=== PATIENT | male | born 1960 | race Caucasian/White ===

== ENCOUNTER → 2016-03-31 | Outpatient (CLI) | payer SELFPAY ==
[~2016-03-31] MED LIST: ALPR.25T PO; AMX500CIP PO; ATOR10TA PO; Amlodipine Besylate PO; CEFU500T5 PO; CRB200T PO; Levothyroxine Sodium PO; OLAN7.5T3 PO; OLN5T PO; PANT20TA2 PO
--- OUTSIDE RECORDS SUMMARY | 2016-03-31 08:19 | XMS REPORT | Continuity of Care Document ---
Author Author [facility] Organization [facility] Address Unknown Phone Unavailable Care Team Providers Care Poacher Wringer Operator Name Role Phone TAE GODOY DO PCP Insurance Providers Payer Name Policy Number Subscriber Name Relationship Self Pay Feliberto Land 18 Self / Same As Patient Advance Directives Directive Response Recorded Date/Time Advance Directives No 01/17/14 2:54pm Health Care Power of Manufacturing Engineer Chief No 01/17/14 2:54pm Organ Donor No 01/17/14 2:54pm Resuscitation Status Full Code 01/17/14 2:54pm Chief Complaint and Reason for Visit Chief Complaint S/P SEIZURE Reason for Visit Post-ictal state Post-ictal state Problems Medical Problems Problem Onset Date Status Post-ictal state Unknown Active Post-ictal state Unknown Active Medications Medication Dose Route Sig Days/Qty Instructions Order Date Discontinued Date Status Carbamazepine 200 Mg PO TWICE A DAY 08/05/10 Active Olanzapine 3.5 Mg PO BEDTIME 11/28/11 11/29/11 Discontinued Olanzapine 5 Mg PO BEDTIME 11/29/11 01/17/14 Discontinued Cefuroxime Axetil (Ceftin) 500 Mg PO TWICE A DAY 12/01/11 01/17/14 Discontinued Alprazolam 0.25 Mg PO BEDTIME PRN ANXIETY 12/01/11 Active [Amlodipine Besylate] 5 Mg PO DAILY 30 Qty 01/18/14 Active [Levothyroxine Sodium] 25 Mcg PO DAILY@0630 30 Qty 01/18/14 Active Amoxicillin 500 Mg PO THREE TIMES A DAY 20 Qty 01/18/14 Active Social History Social History Problem Response Recorded Date/Time Alcohol Use Denies Use 01/17/2014 2:50pm Recreational Drug Use Yes 01/17/2014 2:50pm Recent Foreign Travel No 01/17/2014 2:50pm Recent Infectious Disease Exposure No 01/17/2014 2:50pm Hospitalization with Isolation Denies 01/18/2014 3:21pm Smoking Status Current Everyday Smoker 01/17/2014 2:44pm Do you dip or chew tobacco? No 01/17/2014 2:44pm Query Response Start Date Stop Date Smoking Status Current Everyday Smoker Hospital Discharge Instructions Patient Instructions Physician Instructions New, Converted or Re-Newed RX: Call to Patients Pharmacy Plan of Care/Instructions/FU: 2 office in one week. Seizure precautions. No driving. No heights Activity as Tolerated: Yes Discharge Diet: No Restrictions Plan of Care Discharge Date 01/18/14 2:45pm Disposition 01 HOME, SELF-CARE Instructions/Education Provided Non-epileptic Seizures (GEN) Prescriptions See Medications Section Referrals DR. GODOY (Unspecified) Functional Status Query Response Date Recorded Patient Orientation Person Place Time Situation January 18, 2014 3:21pm Comprehension Ability Understands Concepts January 18, 2014 12:00pm Allergies, Adverse Reactions, Alerts Allergen Type Severity Reaction Status Last Updated No Known Drug Allergies Active 08/05/10 Immunizations Name Given Type Date of Pneumonia Vaccine 11/29/11 Historical Vital Signs Acute Vital Signs Vital Response Date/Time Temperature (Fahrenheit) 97.5 degrees F (97.6 - 99.5) Temperature (Calculated Celsius) 36.28394 degrees C (36.4 - 37.5) Temperature Source Tympanic Pulse Rate (adult) 56 bpm (60 - 90) Respiratory Rate 20 bpm (12 - 24) O2 Sat by Pulse Oximetry 99 % (88 - 100) Blood Pressure 151/74 mm Hg Pain Pain Intensity 10 Height (Feet) 5 feet Height (Inches) 11.00 inches Height (Calculated Centimeters) 180.794721 cm Weight (Pounds) 178 pounds Weight (Ounces) 4.0 oz Weight (Calculated Grams) 53962.841 gm Weight (Calculated Kilograms) 80.736831 kilograms Calculated BMI 24.82 Results Test Source Date Result Interp. Ref. Range Comments Acetaminophen Level August 05, 2010 2:23pm < 10 UG/ML L 10.0-30.0 Acetaminophen Screen August 05, 2010 4:25pm NEGATIVE - APAP= ACETAMINOPHEN/PARACETAMOL Activated Partial Thromboplast Time November 28, 2011 8:05pm 40 SEC H 24-35 Alanine Aminotransferase (ALT/SGPT) November 29, 2011 7:54am 34 U/L N 30-65 Albumin November 29, 2011 7:54am 2.7 G/DL L 3.4-5.0 Alkaline Phosphatase November 29, 2011 7:54am 74 U/L N 50-136 Aspartate Amino Transf (AST/SGOT) November 29, 2011 7:54am 19 U/L N 15- 37 BUN/Creatinine Ratio December 01, 2011 5:27am 13 - Band Neutrophils November 29, 2011 7:54am 28 % - Basophils # (Auto) December 01, 2011 5:27am 0.0 10^3/uL N 0.0-0.1 Basophils % (Manual) November 29, 2011 7:54am 0 % - Basophils (%) (Auto) December 01, 2011 5:27am 0 % N 0-10 Blood Urea Nitrogen December 01, 2011 5:27am 13 MG/DL N 7-18 Calcium Level December 01, 2011 5:27am 8.1 MG/DL L 8.5-10.1 Carbamazepine (Tegretol) Level December 01, 2011 5:27am 8.5 UG/ML N 4.0 -12.0 Carbon Dioxide Level December 01, 2011 5:27am 31 MMOL/L N 21-32 Chloride Level December 01, 2011 5:27am 106 MMOL/L N 101-110 Cholesterol Level August 19, 2011 12:00pm 204 MG/DL H -200 Creatinine December 01, 2011 5:27am 1.0 MG/DL N 0.6-1.3 Eosinophils # (Auto) December 01, 2011 5:27am 0.0 10^3/uL N 0.0-0.3 Eosinophils % (Manual) November 29, 2011 7:54am 0 % - Eosinophils (%) (Auto) December 01, 2011 5:27am 0 % N 0-10 Glucose Level December 01, 2011 5:27am 85 MG/DL N 74-106 HDL Cholesterol August 19, 2011 12:00pm 40 MG/DL N 35-60 Hematocrit December 01, 2011 5:27am 35 % L 40-54 Hemoglobin December 01, 2011 5:27am 12.6 G/DL L 13.3-17.7 LDL Cholesterol August 19, 2011 12:00pm 146 MG/DL H 0-129 Lymphocytes # (Auto) December 01, 2011 5:27am 2.1 X 10^3 N 1.0-4.0 Lymphocytes % (Manual) November 29, 2011 7:54am 13 % - Lymphocytes (%) (Auto) December 01, 2011 5:27am 46 % H 12-44 Magnesium Level November 28, 2011 8:05pm 2.0 MG/DL N 1.8-2.4 Mean Corpuscular Hemoglobin December 01, 2011 5:27am 36 PG H 25-34 Mean Corpuscular Hemoglobin Concent December 01, 2011 5:27am 36 G/DL N 32-36 Mean Corpuscular Volume December 01, 2011 5:27am 100 FL H 80-99 Mean Platelet Volume December 01, 2011 5:27am 9.8 FL N 7.4-10.4 Metamyelocytes % November 29, 2011 7:54am 1 % - Monocytes # (Auto) December 01, 2011 5:27am 0.2 X 10^3 N 0.0-1.0 Monocytes % (Manual) November 29, 2011 7:54am 1 % - Monocytes (%) (Auto) December 01, 2011 5:27am 5 % N 0-12 Myoglobin November 28, 2011 8:05pm 55 UG/L N 10-92 Neutrophils # (Auto) December 01, 2011 5:27am 2.2 X 10^3 N 1.8-7.8 Neutrophils % (Manual) November 29, 2011 7:54am 55 % - Neutrophils (%) (Auto) December 01, 2011 5:27am 49 % N 42-75 Platelet Count December 01, 2011 5:27am 142 10^3/uL N 130-400 Potassium Level December 01, 2011 5:27am 3.4 MMOL/L L 3.6-5.0 Prothromb Time International Ratio November 28, 2011 8:05pm 1.2 N 0.8- 1.4 INTERPRETIVE DATASUGGESTED THERAPEUTIC RANGE FOR INR'S : VENOUS THROMBOSIS, PULMONARY EMBOLISM, OR PREVENTION OF SYSTEMIC EMBOLISM (EG. IN ATRIAL FIBRILLATION): 2.0 - 3.0 MECHANICAL PROSTHETIC HEART VALVES: 2.5 - 3.5* *NOTE: INR'S UP TO 4.5 MAY BE NECESSARY IN SELECTED GROUPS OF HIGH RISK PATIENTS. [employer] [place] [employer] CHEST PHYSICIANS CONSENSUS CONFERENCE ON ANTITHROMBOTIC THERAPY (2000). Prothrombin Time November 28, 2011 8:05pm 15.7 SEC H 12.2-14.7 Reactive Lymphocytes November 29, 2011 7:54am 2 % - Red Blood Count December 01, 2011 5:27am 3.52 10^6/uL L 4.35-5.85 Red Cell Distribution Width December 01, 2011 5:27am 13.7 % N 10.0- 14.5 Sodium Level December 01, 2011 5:27am 142 MMOL/L N 135-145 TSH [place] Testing November 28, 2011 8:05pm 0.59 UIU/ML N 0.34-5.60 Thyroid Stimulating Hormone (TSH) December 12, 2006 9:10am 1.65 UIU/ML N 0.34-5.60 Total Bilirubin November 29, 2011 7:54am 0.4 MG/DL N 0.0-1.0 Total Protein November 29, 2011 7:54am 6.8 G/DL N 6.4-8.2 Triglycerides Level August 19, 2011 12:00pm 90 MG/DL N 30.0-150.0 Troponin I November 29, 2011 7:54am < 0.10 MG/ML 0.00-0.10 Ur Tricyclic Antidepressants Screen August 05, 2010 4:25pm NEGATIVE - Urine Amphetamines Screen August 05, 2010 4:25pm NEGATIVE - Urine Bacteria December 12, 2006 10:58am Trace - Urine Barbiturates Screen August 05, 2010 4:25pm NEGATIVE - Urine Benzodiazepines Screen August 05, 2010 4:25pm NEGATIVE - Urine Bilirubin December 12, 2006 10:58am Negative - Urine Casts December 12, 2006 10:58am None - Urine Clarity December 12, 2006 10:58am Slightly cloudy - Urine Cocaine Screen August 05, 2010 4:25pm NEGATIVE - Urine Color December 12, 2006 10:58am Yellow - Urine Crystals December 12, 2006 10:58am None - Urine Culture Indicated December 12, 2006 10:58am No - Urine Glucose (UA) December 12, 2006 10:58am Negative - Urine Ketones December 12, 2006 10:58am Negative - Urine Leukocyte Esterase December 12, 2006 10:58am Negative - Urine Methamphetamines Screen August 05, 2010 4:25pm NEGATIVE - Urine Mucus December 12, 2006 10:58am Negative - Urine Nitrate December 12, 2006 10:58am Negative - Urine Opiates Screen August 05, 2010 4:25pm NEGATIVE - Urine Phencyclidine Screen August 05, 2010 4:25pm NEGATIVE - Phencyclidine testing by this method can showcross-reactivity with several common medications such as venlafaxine, dextromethorphan, and diphenhydramine. Submission of any positive sample for confirmatory testing is recommended. Urine Protein December 12, 2006 10:58am Negative - Urine RBC December 12, 2006 10:58am None /HPF - Urine Specific [place] December 12, 2006 10:58am 1.020 - Urine Urobilinogen December 12, 2006 10:58am Normal MG/DL - Urine WBC December 12, 2006 10:58am None /HPF - Urine pH December 12, 2006 10:58am 5.0 - VLDL Cholesterol August 19, 2011 12:00pm 18 MG/DL N 5-40 White Blood Count December 01, 2011 5:27am 4.6 10^3/uL N 4.3-11.0 Serum Alcohol August 05, 2010 2:23pm < 5 MG/DL -5 Lab Scanned Report November 28, 2011 9:30pm LAB Reports [id number] - Estimat Glomerular Filtration Rate November 28, 2011 8:05pm > 60 - GFR INTERPRETIVE DATA UNITS FOR ESTIMATED GFR (eGFR): mL/min/1.73 M2 REFERENCE RANGE FOR ESTIMATED GFR (eGFR) eGFR NORMAL eGFR >60 MODERATELY DECREASED eGFR 30-59 SEVERLY DECREASED eGFR 15-29 KIDNEY FAILURE <15 (OR DIALYSIS) Blood Morphology Comment November 29, 2011 7:54am NORMAL - Urine Methadone Screen August 05, 2010 4:25pm NEGATIVE - Creatine Kinase November 29, 2011 7:54am 91 U/L N 1-205 Urine Cannabinoids Screen August 05, 2010 4:25pm POSITIVE H - Cardiac Panel Pathologist Review November 28, 2011 8:05pm SEE CARDIAC PATH REV - Blood Culture Peripheral-Rt Ac November 28, 2011 10:00pm No growth Procedures No known history of procedures. Encounters Encounter Location Date/Time Discharged Inpatient [facility] 01/17/14 2:00pm Recent Diagnosis Post-ictal state Post-ictal state
[2016-03-31 08:34] LABS: MEAN PLATELET VOLUME 8.9 FL (7.4-10.4); RED BLOOD COUNT 4.72 10^6/uL (4.35-5.85); RED CELL DISTRIBUTION WIDTH 12.7 % (10.0-14.5); WHITE BLOOD COUNT 5.7 10^3/uL (4.3-11.0)
[2016-03-31 08:58] LABS: ALANINE AMINOTRANSFERASE 20 U/L (0-55); ALBUMIN 4.2 G/DL (3.2-4.5); ANION GAP 9 MMOL/L (5-14); ASPARTATE AMINO TRANSFERASE 19 U/L (5-34); BILIRUBIN,TOTAL 0.5 MG/DL (0.1-1.0); BLOOD UREA NITROGEN 6 MG/DL (7-18); BUN/CREATININE RATIO 7; CALCIUM 9.1 MG/DL (8.5-10.1); CARBON DIOXIDE 26 MMOL/L (21-32); CHLORIDE 99 MMOL/L (98-107); GFR ESTIMATED > 60; GLUCOSE 83 MG/DL (70-105); POTASSIUM 4.5 MMOL/L (3.6-5.0); SODIUM 134 MMOL/L (135-145); TOTAL PROTEIN 7.3 G/DL (6.4-8.2)
== END ==
LOC: LAB 08:15
PROVIDERS: ATTEND Family Medicine
DX: G40.909 Epilepsy, unspecified, not intractable, without status epilepticus (principal); I10 Essential (primary) hypertension; E03.9 Hypothyroidism, unspecified
CPT/HCPCS: 36415; 80053; 84443; 85027

== ENCOUNTER 2016-05-05 13:49 | Emergency (ER) | payer SELFPAY ==
[~2016-05-05] VITALS: Ht 180.3 cm; Wt 84.8 kg
--- OUTSIDE RECORDS SUMMARY | 2016-05-05 13:58 | XMS REPORT | Continuity of Care Document ---
Author Author [facility] Organization [facility] Address Unknown Phone Unavailable Care Team Providers Care Budget Engineer Name Role Phone TAE GODOY DO PCP Insurance Providers Payer Name Policy Number Subscriber Name Relationship Self Pay Feliberto Land 18 Self / Same As Patient Advance Directives Directive Response Recorded Date/Time Advance Directives No 01/17/14 2:54pm Health Care Power of Senior Financial Reporting Accountant No 01/17/14 2:54pm Organ Donor No 01/17/14 [...] F (97.6 - 99.5) Temperature (Calculated Celsius) 36.63167 degrees C (36.4 - 37.5) Temperature Source Tympanic Pulse Rate (adult) 56 bpm (60 - 90) Respiratory Rate 20 bpm (12 - 24) O2 Sat by Pulse Oximetry 99 % (88 - 100) Blood Pressure 151/74 mm Hg Pain Pain Intensity 10 Height (Feet) 5 feet Height (Inches) 11.00 inches Height (Calculated Centimeters) 180.610725 cm Weight (Pounds) 178 pounds Weight (Ounces) 4.0 oz Weight (Calculated Grams) 37879.841 gm Weight (Calculated Kilograms) 80.377584 kilograms Calculated BMI 24.82 Results Test Source [...] SELECTED GROUPS OF HIGH RISK PATIENTS. [employer] [place] [place] [employer]ST PHYSICIANS CONSENSUS CONFERENCE ON [...] 2011 5:27am 142 MMOL/L N 135-145 TSH [place] Testing November 28, 2011 8:05pm 0.59 UIU/ML [...] 2006 10:58am None /HPF - Urine Specific [place] December 12, 2006 10:58am 1.020 - Urine [...] Report November 28, 2011 9:30pm LAB Reports [id number] - Estimat Glomerular Filtration Rate November 28, [...] Encounters Encounter Location Date/Time Discharged Inpatient [facility] 01/17/14 2:00pm Recent Diagnosis Post-ictal state Post-ictal state
--- NOTE | 2016-05-05 14:03 | ED General ---
General Chief Complaint: General Problems/Pain Stated Complaint: SEIZURES Source of Information: Patient Exam Limitations: No Limitations History of Present Illness Time Seen by Provider: 14:02 Initial Comments To ER with reports of a seizure 2 today. His last seizure prior to this was about a year ago. He is on Tegretol for a history of seizures. He also takes Xanax. He states that his last dose of Xanax was 2-3 days ago and that he takes it daily. disagrees and states that he does not take it daily. Timing/Duration: 1-3 Hours Severity: Mild Associated Systoms: Denies Symptoms Allergies and Home Medications Allergies Coded Allergies: No Known Drug Allergies (Unverified , 08/05/10) Home Medications 5 MG TAB #30 5 MG PO DAILY Prescribed by: TAE GODOY on 01/18/14 0742 25 MCG TAB #30 25 MCG PO DAILY@0630 Prescribed by: TAE GODOY on 01/18/14 0742 Alprazolam 0.25 Mg Tablet 0.25 MG PO HS PRN PRN ANXIETY (Reported) Atorvastatin Calcium 10 Mg Tablet 10 MG PO HS (Reported) Carbamazepine 200 Mg Tablet 200 MG PO BID (Reported) Pantoprazole Sodium 20 Mg Tablet.dr #30 20 MG PO DAILY Prescribed by: KATIE SCHMITZ on 01/14/15 0959 Constitutional: see HPI EENTM: see HPI Respiratory: no symptoms reported Cardiovascular: no symptoms reported Genitourinary: no symptoms reported Musculoskeletal: no symptoms reported Skin: no symptoms reported Psychiatric/Neurological: See HPI Seizure Past Noxwjbd-Vajruc-Afvvbd Hx Immunizations Up To Date Date of Pneumonia Vaccine: Nov 29, 2011 Surgeries HX Surgeries: Yes (BILATERAL CARPAL TUNNEL, LIVER BIOPSY) Respiratory Hx Respiratory Disorders: No Respiratory Disorders: Pneumonia Cardiovascular Hx Cardiac Disorders: Yes Cardiac Disorders: High Cholesterol, Hypertension Neurological Hx Neurological Disorders: Yes (LAST SEIZURE WAS FALL OR WINTER OF 2013) Neurological Disorders: Seizure Disorder Reproductive System Hx Reproductive Disorders: No Sexually Transmitted Disease: No HIV/AIDS: No Genitourinary Hx Genitourinary Disorders: No Gastrointestinal Hx Gastrointestinal Disorders: Yes (TOOK CHEMO FOR 9 MONTHS - HEP C) Gastrointestinal Disorders: Hepatitis Musculoskeletal Hx Musculoskeletal Disorders: Yes Musculoskeletal Disorders: Arthritis, Chronic Back Pain Endocrine Hx Endocrine Disorders: Yes (LOW BLOOD SUGAR) Endocrine Disorders: Hypothyroidsim HEENT HX ENT Disorders: Yes (WEARS GLASSES, UPPER DENTURES) HEENT Disorders: Tinnitis Loss of Vision: Bilateral Hearing Impairment: Denies Cancer Hx Cancer: No Psychosocial Hx 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 Physical Exam Vital Signs Vital Sign - Last 12Hours 05/05/16 14:02 Temp 96.4 Pulse 98 Resp 14 B/P 109/72 Pulse Ox 97 O2 Delivery Room Air Capillary Refill : General Appearance: No Apparent Distress WD/WN Eyes: Bilateral Eye EOMI, Bilateral Eye Normal Inspection, Bilateral Eye PERRL HEENT: PERRL/EOMI TMs Normal Neck: Full Range of Motion Normal Inspection Respiratory: No Accessory Muscle Use No Respiratory Distress Cardiovascular: Regular Rate, Rhythm Normal Peripheral Pulses Gastrointestinal: Normal Bowel Sounds Non Tender Soft Extremity: Normal Capillary Refill Normal Inspection Neurologic/Psychiatric: Alert Oriented x3 Skin: Normal Color Damp Progress/Results/Core Measures Results/Orders Lab Results Laboratory Tests Test 05/05/16 14:15 05/05/16 16:14 Range/Units Acetaminophen Level < 10 L 10-30 UG/ML Alanine Aminotransferase (ALT/SGPT) 57 H 0-55 U/L Albumin 4.1 3.2-4.5 G/DL Alkaline Phosphatase 100 40-136 U/L Anion Gap 11 5-14 MMOL/L Aspartate Amino Transf (AST/SGOT) 46 H 5-34 U/L BUN/Creatinine Ratio 9 Basophils # (Auto) 0.0 0.0-0.1 10^3/uL Basophils (%) (Auto) 0 0-10 % Blood Urea Nitrogen 10 7-18 MG/DL Calcium Level 9.1 8.5-10.1 MG/DL Carbon Dioxide Level 22 21-32 MMOL/L Chloride Level 98 98-107 MMOL/L Creatinine 1.08 0.60-1.30 MG/DL Eosinophils # (Auto) 0.0 0.0-0.3 10^3/uL Eosinophils (%) (Auto) 0 0-10 % Estimat Glomerular Filtration Rate > 60 Glucose Level 130 H 70-105 MG/DL Hematocrit 45 40-54 % Hemoglobin 16.4 13.3-17.7 G/DL Lymphocytes # (Auto) 1.6 1.0-4.0 X 10^3 Lymphocytes (%) (Auto) 22 12-44 % Mean Corpuscular Hemoglobin 34 25-34 PG Mean Corpuscular Hemoglobin Concent 37 H 32-36 G/DL Mean Corpuscular Volume 93 80-99 FL Mean Platelet Volume 8.8 7.4-10.4 FL Monocytes # (Auto) 0.4 0.0-1.0 X 10^3 Monocytes (%) (Auto) 6 0-12 % Neutrophils # (Auto) 5.0 1.8-7.8 X 10^3 Neutrophils (%) (Auto) 71 42-75 % Platelet Count 244 130-400 10^3/uL Potassium Level 3.8 3.6-5.0 MMOL/L Red Blood Count 4.82 4.35-5.85 10^6/uL Red Cell Distribution Width 13.2 10.0-14.5 % Salicylates Level < 5.0 L 5.0-20.0 MG/DL Serum Alcohol < 10 <10 MG/DL Sodium Level 131 L 135-145 MMOL/L Total Bilirubin 0.4 0.1-1.0 MG/DL Total Protein 7.7 6.4-8.2 G/DL White Blood Count 7.0 4.3-11.0 10^3/uL Ur Tricyclic Antidepressants Screen NEGATIVE NEGATIVE Urine Amphetamines Screen NEGATIVE NEGATIVE Urine Bacteria NONE /HPF Urine Barbiturates Screen NEGATIVE NEGATIVE Urine Benzodiazepines Screen POSITIVE H NEGATIVE Urine Bilirubin NEGATIVE NEGATIVE Urine Cannabinoids Screen NEGATIVE NEGATIVE Urine Casts NONE /LPF Urine Clarity CLEAR Urine Cocaine Screen NEGATIVE NEGATIVE Urine Color YELLOW Urine Crystals NONE /LPF Urine Culture Indicated NO Urine Glucose (UA) NEGATIVE NEGATIVE Urine Ketones NEGATIVE NEGATIVE Urine Leukocyte Esterase NEGATIVE NEGATIVE Urine Methadone Screen NEGATIVE NEGATIVE Urine Methamphetamines Screen NEGATIVE NEGATIVE Urine Mucus NEGATIVE /LPF Urine Nitrite NEGATIVE NEGATIVE Urine Opiates Screen NEGATIVE NEGATIVE Urine Oxycodone Screen NEGATIVE NEGATIVE Urine Phencyclidine Screen NEGATIVE NEGATIVE Urine Propoxyphene Screen NEGATIVE NEGATIVE Urine Protein 3+ H NEGATIVE Urine RBC NONE /HPF Urine RBC (Auto) NEGATIVE NEGATIVE Urine Specific [place] 1.010 L 1.016-1.022 Urine Urobilinogen NORMAL NORMAL MG/DL Urine WBC 0-2 /HPF Urine pH 7 5-9 My Orders Orders-JEANNIE LATIF FURNITURE MOVER HELPER Cbc With Automated Diff (05/05/16 14:01) Comprehensive Metabolic Panel (05/05/16 14:01) Ua Culture If Indicated (05/05/16 14:01) Drug Screen Stat (Urine) (05/05/16 14:01) Acetaminophen (05/05/16 14:01) Salicylate (05/05/16 14:01) Alcohol (05/05/16 14:01) Saline Lock/Iv-Start (05/05/16 14:01) Ns Iv 1000 Ml (Sodium Chloride 0.9%) (05/05/16 14:15) Ns Iv 1000 Ml (Sodium Chloride 0.9%) (05/05/16 15:30) Vital Signs/I&O Vital Sign - Last 12Hours 05/05/16 14:02 Temp 96.4 Pulse 98 Resp 14 B/P 109/72 Pulse Ox 97 O2 Delivery Room Air Departure Communication Progress Notes 1603-remains alert, sitting up on the edge of the bed. I discussed his normal labs with him and the need for urine, he states he is unable to go at this time. Impression Impression: Primary Impression: Post-ictal state Additional Impression: Seizure disorder Disposition: 01 HOME, SELF-CARE Condition: Stable Departure-Patient Inst. Decision time for Depature: 16:04 Referrals: TAE GODOY DO (PCP/Family) Primary Care Physician Patient Instructions: Seizures, Adult (DC) Add. Discharge Instructions: 1. Continue your current medications 2. Follow-up with Dr. Dr. Godoy 3. All discharge instructions reviewed with patient and/or family. Voiced understanding. Copy Copies To 1: TAE GODOY PETER J APRN May 05, 2016 14:03
[2016-05-05] MEDS ORDERED: NS IV 1000 ML 1,000 ML IV SCH ×2 (14:15→15:30)
[2016-05-05 14:28] LABS: BASOPHILS % (AUTO) 0 % (0-10); EOSINOPHILS % (AUTO) 0 % (0-10); LYMPHOCYTES # (AUTO) 1.6 X 10^3 (1.0-4.0); LYMPHOCYTES % (AUTO) 22 % (12-44); MEAN CORPUSCULAR HEMOGLOBIN 34 PG (25-34); MEAN CORPUSCULAR HGB CONC 37 G/DL (32-36); MEAN CORPUSCULAR VOLUME 93 FL (80-99); MEAN PLATELET VOLUME 8.8 FL (7.4-10.4); MONOCYTES # (AUTO) 0.4 X 10^3 (0.0-1.0); MONOCYTES % (AUTO) 6 % (0-12); NEUTROPHILS % (AUTO) 71 % (42-75); PLATELET COUNT 244 10^3/uL (130-400); RED BLOOD COUNT 4.82 10^6/uL (4.35-5.85); RED CELL DISTRIBUTION WIDTH 13.2 % (10.0-14.5)
[2016-05-05 14:47] LABS: ALANINE AMINOTRANSFERASE 57 U/L (0-55); ALBUMIN 4.1 G/DL (3.2-4.5); ANION GAP 11 MMOL/L (5-14); ASPARTATE AMINO TRANSFERASE 46 U/L (5-34); BILIRUBIN,TOTAL 0.4 MG/DL (0.1-1.0); BLOOD UREA NITROGEN 10 MG/DL (7-18); BUN/CREATININE RATIO 9; CALCIUM 9.1 MG/DL (8.5-10.1); CARBON DIOXIDE 22 MMOL/L (21-32); CHLORIDE 98 MMOL/L (98-107); CREATININE SERUM 1.08 MG/DL (0.60-1.30); GFR ESTIMATED > 60; GLUCOSE 130 MG/DL (70-105); POTASSIUM 3.8 MMOL/L (3.6-5.0); SALICYLATE < 5.0 MG/DL (5.0-20.0); SODIUM 131 MMOL/L (135-145); TOTAL PROTEIN 7.7 G/DL (6.4-8.2)
[2016-05-05 14:48] LABS: ACETAMINOPHEN < 10 UG/ML (10-30); ALCOHOL < 10 MG/DL (<10)
[2016-05-05 16:42] LABS: BILIRUBIN,URINE NEGATIVE (NEGATIVE); KETONES,URINE NEGATIVE (NEGATIVE); LEUKOCYTE ESTERASE ,URINE NEGATIVE (NEGATIVE); NITRITE,URINE NEGATIVE (NEGATIVE); PH,URINE 7 (5-9); PROTEIN,URINE 3+ (NEGATIVE); UROBILINOGEN,URINE NORMAL (NORMAL); WBC,URINE 0-2 /HPF
[2016-05-05 16:55] VITALS: BP 120/80
== END 2016-05-05 16:55 | disposition home or self-care (01) ==
LOC: EDUNIT# 13:49 → ER 13:51
DX: G40.909 Epilepsy, unspecified, not intractable, without status epilepticus (principal); I10 Essential (primary) hypertension; Z79.899 Other long term (current) drug therapy
CPT/HCPCS: 36415; 80053; 80306; 80320; 80329; 81000; 85025; 96360; 96361

== ENCOUNTER → 2016-08-11 | Outpatient (CLI) | payer OTHER ==
[2016-08-11 14:36] LABS: MEAN PLATELET VOLUME 8.8 FL (7.4-10.4); RED BLOOD COUNT 5.01 10^6/uL (4.35-5.85); RED CELL DISTRIBUTION WIDTH 11.7 % (10.0-14.5); WHITE BLOOD COUNT 7.1 10^3/uL (4.3-11.0)
[2016-08-11 14:54] LABS: ALANINE AMINOTRANSFERASE 76 U/L (0-55); ALBUMIN 4.4 G/DL (3.2-4.5); ANION GAP 11 MMOL/L (5-14); ASPARTATE AMINO TRANSFERASE 47 U/L (5-34); BILIRUBIN,TOTAL 0.6 MG/DL (0.1-1.0); BLOOD UREA NITROGEN 14 MG/DL (7-18); BUN/CREATININE RATIO 14; CALCIUM 9.5 MG/DL (8.5-10.1); CARBON DIOXIDE 25 MMOL/L (21-32); CHLORIDE 98 MMOL/L (98-107); CREATININE SERUM 1.03 MG/DL (0.60-1.30); GFR ESTIMATED > 60; GLUCOSE 139 MG/DL (70-105); SODIUM 134 MMOL/L (135-145); TOTAL PROTEIN 8.3 G/DL (6.4-8.2)
== END ==
LOC: LAB 13:31
PROVIDERS: ATTEND Family Medicine
DX: G40.909 Epilepsy, unspecified, not intractable, without status epilepticus (principal); R44.3 Hallucinations, unspecified
CPT/HCPCS: 36415; 80053; 80156; 85027

== ENCOUNTER → 2016-08-14 | Outpatient (CLI) | payer OTHER ==
[2016-08-14 09:36] LABS: ALBUMIN 3.9 G/DL (3.2-4.5); BILIRUBIN,DIRECT 0.3 MG/DL (0.0-0.3); BILIRUBIN,INDIRECT 0.2 MG/DL; BILIRUBIN,TOTAL 0.5 MG/DL (0.1-1.0); TOTAL PROTEIN 7.3 G/DL (6.4-8.2)
== END ==
LOC: LAB 09:00
PROVIDERS: ATTEND Family Medicine
DX: R74.8 Abnormal levels of other serum enzymes (principal)
CPT/HCPCS: 36415; 80076

== ENCOUNTER → 2016-09-21 | Outpatient (CLI) | payer OTHER ==
[2016-09-21 09:10] LABS: BILIRUBIN,DIRECT 0.3 MG/DL (0.0-0.3); BILIRUBIN,INDIRECT 0.3 MG/DL; BILIRUBIN,TOTAL 0.6 MG/DL (0.1-1.0); TOTAL PROTEIN 7.6 GM/DL (6.4-8.2)
== END ==
LOC: LAB 08:33
PROVIDERS: ATTEND Family Medicine
DX: R74.8 Abnormal levels of other serum enzymes (principal)
CPT/HCPCS: 36415; 80076

== ENCOUNTER → 2016-12-21 | Outpatient (CLI) | payer OTHER | LOC: LAB 14:27 | PROVIDERS: ATTEND Family Medicine | DX: G40.909 Epilepsy, unspecified, not intractable, without status epilepticus (principal) | CPT/HCPCS: 36415; 80156 ==

== ENCOUNTER → 2017-06-02 | Outpatient (CLI) | payer OTHER ==
--- NOTE | 2017-06-02 11:30 | Diagnostic Imaging Report ---
INDICATION: Pain. COMPARISON: None FINDINGS: 3 views of the left knee are obtained. No acute fracture or osseous destructive process is seen. There is mild narrowing of the medial joint space. There is a bipartite patella. There is minimal spurring of patella. Soft tissues appear unremarkable. IMPRESSION: Minimal degenerative changes. No additional abnormality is seen. Dictated by: Dictated on workstation # [id number]
--- NOTE | 2017-06-02 11:31 | Diagnostic Imaging Report ---
INDICATION: Pain. COMPARISON: 06/29/2014 FINDINGS: 2 views of the left hip are obtained. No acute fracture, malalignment or osseous destructive process is seen. Left hip joint space is preserved. Sacroiliac joints appears unremarkable. IMPRESSION: Negative left hip. Dictated by: Dictated on workstation # [id number]
== END ==
LOC: RAD 11:01
PROVIDERS: ATTEND Family Medicine
DX: M25.562 Pain in left knee (principal); M25.552 Pain in left hip
CPT/HCPCS: 73502; 73562

== ENCOUNTER 2018-05-27 20:12 | Emergency (ER) | payer SELFPAY ==
[~2018-05-27] VITALS: Ht 180.3 cm; Wt 96.4 kg
--- NOTE | 2018-05-27 20:27 | ED Chest Pain ---
General Stated Complaint: WEAKNESS Source: patient Exam Limitations: no limitations (JEANNIE LATIF APRN) History of Present Illness Date Seen by Provider: May 27, 2018 Time Seen by Provider: 20:23 Initial Comments To ER with reports of generalized weakness for about one week. Over the course of the past week he's also had some intermittent chest pains. He reports exertional dyspnea for about the past year. Also states that he's been having fevers and wheezing. He states he does not have any known diagnosis of COPD but he has smoked 1.5-2 packs of cigarettes per day for many years. Reports chronic pain "all over". However, the chest pain is new. Timing/Duration: intermittent Severity/Quality: moderate Location: central Radiation: no radiation Activities at Onset: none ASA po CORNER CUTTER: No NTG SL CORNER CUTTER: No Associated Symptoms: fatigue, fever/chills; No nausea/vomiting; shortness of breath (JEANNIE LATIF APRN) Allergies and Home Medications Allergies Coded Allergies: No Known Drug Allergies (Unverified , 08/05/10) Home Medications Albuterol Sulfate 2.5 Mg/3 Ml Vial.neb, 2.5 MG INH Q4H PRN for WHEEZING Prescribed by: JEANNIE LATIF on 05/27/182225 Alprazolam 0.25 Mg Tablet, 0.25 MG PO HS PRN for ANXIETY, (Reported) Atorvastatin Calcium 10 Mg Tablet, 10 MG PO HS, (Reported) Carbamazepine 200 Mg Tablet, 200 MG PO BID, (Reported) Cefuroxime Axetil 250 Mg Tablet, 250 MG PO BID Prescribed by: JEANNIE LATIF on 05/27/182225 Pantoprazole Sodium 20 Mg Tablet.dr, 20 MG PO DAILY Prescribed by: KATIE SCHMITZ on 01/14/15 0959 Prednisone 20 Mg Tab, 40 MG PO DAILY Prescribed by: JEANNIE LATIF on 05/27/182225 [Amlodipine Besylate] 5 MG TAB, 5 MG PO DAILY Prescribed by: TAE GODOY on 01/18/14 0742 [Levothyroxine Sodium] 25 MCG TAB, 25 MCG PO DAILY@0630 Prescribed by: TAE GODOY on 01/18/14 0742 Patient Home Medication List Home Medication List Reviewed: Yes (JEANNIE LATIF APRN) Review of Systems Review of Systems Constitutional: see HPI, chills, fever, malaise, weakness EENTM: No Symptoms Reported Respiratory: See HPI, Cough, Wheezing Cardiovascular: See HPI, Chest Pain (intermittently over the past week but none currently) Gastrointestinal: See HPI Genitourinary: No Symptoms Reported Musculoskeletal: no symptoms reported Skin: no symptoms reported Psychiatric/Neurological: No Symptoms Reported Endocrine: No Symptoms Reported Hematologic/Lymphatic: No Symptoms Reported (JEANNIE LATIF APRN) Past Pnftxwy-Nopqao-Zzqhck Hx Patient Social History Type Used: Cigarettes 2nd Hand Smoke Exposure: No Recent Foreign Travel: No Contact w/Someone Who Travel: No Recent Hopitalizations: Yes (JEANNIE LATIF APRN) Immunizations Up To Date Date of Pneumonia Vaccine: Nov 29, 2011 (JEANNIE LATIF APRN) Seasonal Allergies Seasonal Allergies: No (JEANNIE LATIF APRN) Past Medical History Pneumonia Currently Using CPAP: No Currently Using BIPAP: No High Cholesterol, Hypertension Seizure Disorder Reproductive Disorders: No Sexually Transmitted Disease: No HIV/AIDS: No Hepatitis Arthritis, Chronic Back Pain Hypothyroidsim Tinnitis Loss of Vision: Bilateral Hearing Impairment: Denies Anxiety, Violent Behavior, Depression Adverse Reaction/Blood Tranf: No (JEANNIE LATIF APRN) Family Medical History Patient reports no known family medical history. Physical Exam Vital Signs Vital Signs - First Documented 05/27/18 20:20 Temp 97.9 Pulse 63 Resp 20 B/P (MAP) 173/100 (124) Pulse Ox 100 O2 Delivery Room Air ([facility]) Vital Signs Capillary Refill : (JEANNIE LATIF APRN) Height, Weight, BMI Height: 5'11" Weight: 187lbs. 8.0oz. 84.785954yx; 23.73 BMI Method:Stated General Appearance: No Apparent Distress, WD/WN, Other (comes back to room 5 via wheelchair but is able to stand up and transfer from the wheelchair to the bed without any assistance.) HEENT: PERRL/EOMI Neck: Full Range of Motion, Normal Inspection Respiratory: No Accessory Muscle Use, No Respiratory Distress Cardiovascular: Regular Rate, Rhythm, Normal Peripheral Pulses Gastrointestinal: Normal Bowel Sounds, Non Tender, Soft Extremity: Normal Capillary Refill, Normal Inspection Neurologic/Psychiatric: Alert, Oriented x3 Skin: Normal Color, Warm/Dry (JEANNIE LATIF APRN) Progress/Results/Core Measures Results/Orders Lab Results Laboratory Tests Test 05/27/18 20:36 05/27/18 22:35 Range/Units White Blood Count 5.9 4.3-11.0 10^3/uL Red Blood Count 4.33 L 4.35-5.85 10^6/uL Hemoglobin 14.9 13.3-17.7 G/DL Hematocrit 40 40-54 % Mean Corpuscular Volume 93 80-99 FL Mean Corpuscular Hemoglobin 34 25-34 PG Mean Corpuscular Hemoglobin Concent 37 H 32-36 G/DL Red Cell Distribution Width 12.2 10.0-14.5 % Platelet Count 153 130-400 10^3/uL Mean Platelet Volume 9.1 7.4-10.4 FL Neutrophils (%) (Auto) 65 42-75 % Lymphocytes (%) (Auto) 27 12-44 % Monocytes (%) (Auto) 5 0-12 % Eosinophils (%) (Auto) 2 0-10 % Basophils (%) (Auto) 0 0-10 % Neutrophils # (Auto) 3.9 1.8-7.8 X 10^3 Lymphocytes # (Auto) 1.6 1.0-4.0 X 10^3 Monocytes # (Auto) 0.3 0.0-1.0 X 10^3 Eosinophils # (Auto) 0.1 0.0-0.3 10^3/uL Basophils # (Auto) 0.0 0.0-0.1 10^3/uL Sodium Level 127 L 135-145 MMOL/L Potassium Level 3.5 L 3.6-5.0 MMOL/L Chloride Level 93 L 98-107 MMOL/L Carbon Dioxide Level 25 21-32 MMOL/L Anion Gap 9 5-14 MMOL/L Blood Urea Nitrogen 4 L 7-18 MG/DL Creatinine 0.81 0.60-1.30 MG/DL Estimat Glomerular Filtration Rate > 60 BUN/Creatinine Ratio 5 Glucose Level 101 70-105 MG/DL Calcium Level 8.4 L 8.5-10.1 MG/DL Corrected Calcium 8.7 8.5-10.1 MG/DL Total Bilirubin 1.5 H 0.1-1.0 MG/DL Aspartate Amino Transf (AST/SGOT) 100 H 5-34 U/L Alanine Aminotransferase (ALT/SGPT) 114 H 0-55 U/L Alkaline Phosphatase 176 H 40-136 U/L Troponin I < 0.028 < 0.028 <0.028 NG/ML B-Type Natriuretic Peptide 18.8 <100.0 PG/ML Total Protein 7.1 6.4-8.2 GM/DL Albumin 3.6 3.2-4.5 GM/DL Thyroid Stimulating Hormone (TSH) 0.68 0.35-4.94 UIU/ML Free Thyroxine 0.94 0.70-1.48 NG/DL Serum Alcohol < 10 <10 MG/DL ([facility]) Micro Results Microbiology 05/27/18 Influenza Types A,B Antigen (EBENEZER) - Final, Complete ([facility]) Medications Given in ED Current Medications Medications Dose Ordered Sig/Nikunj Route Start Time Stop Time Status Last Admin Dose Admin Albuterol/ Ipratropium 3 ml ONCE ONCE INH 05/27/18 20:30 05/27/18 20:32 DC 05/27/18 20:46 3 ML Methylprednisolone Sodium Succinate 125 mg ONCE ONCE IVP 05/27/18 20:30 05/27/18 20:32 DC 05/27/18 20:40 125 MG ([facility]) Vital Signs/I&O 05/27/18 05/27/18 05/27/18 20:20 20:46 22:06 Temp 97.9 Pulse 63 Resp 20 B/P (MAP) 173/100 (124) Pulse Ox 100 100 97 O2 Delivery Room Air Room Air Room Air ([facility]) Departure Communication (Admissions) 4500-EKG does not show any ST segment changes, initial troponin is negative and he's been pain-free since he's been here. His symptoms of exertional dyspnea could be related to cardiac disease or COPD which she certainly has otherwise not been diagnosed. He became much more wheezy after 1 DuoNeb treatment secondary to increased air movement. A glnm-rw-hydy albuterol treatment of 5 mg was then given. His initial troponin is negative. His BNP is normal. I discussed the case with Dr. Claudio on-call for cardiology. We will do a 3 hour troponin repeat, if negative discharged home with treatment for COPD exacerbation and he'll follow-up with the patient in the clinic next week for further evaluation. I relayed this plan to the patient and his , both of whom are agreeable with this. He is audibly wheezy at this time so we'll proceed with a one-hour albuterol treatment. 2226-Care turned over to Dr Main. (JEANNIE LATIF APRN) Impression Primary Impression: COPD exacerbation Additional Impression: Intermittent chest pain Disposition: HOME, SELF-CARE Condition: Stable Departure-Patient Inst. Decision time for Depature: 21:44 (JEANNIE LATIF APRN) Referrals: [facility] – [place] (PCP/Family) Primary Care Physician Martha CLAUDIO MD Patient Instructions: Chest Pain, Exacerbation of COPD Add. Discharge Instructions: 1. Call Dr Claudio on Wednesday for a follow up appointment 2. Steroids and antibiotics as directed 3. Return to Er for any chest pain or other concerns over the weekend. Scripts Cefuroxime Axetil (Cefuroxime) 250 Mg Tablet 250 MG PO BID, #10 TAB Prov: JEANNIE LATIF APRN 05/27/18 Albuterol Sulfate (Albuterol Sulfate) 2.5 Mg/3 Ml Vial.neb 2.5 MG INH Q4H PRN for WHEEZING, #25 EA Prov: JEANNIE LATIF APRN 05/27/18 Prednisone (Prednisone) 20 Mg Tab 40 MG PO DAILY, #8 TAB Prov: JEANNIE LATIF APRN 05/27/18 JEANNIE LATIF APRN May 27, 2018 20:27 [facility]I May 27, 2018 23:18
[2018-05-27] MEDS ORDERED: methylPREDNISolone 125 MG (Solu-MEDROL) VIAL IVP ONE (20:30)
[2018-05-27] MEDS ORDERED: RT-ALBUTEROL/IPRATROPIUM 3 ML (DUONEB) VIAL INH ONE (20:30)
[2018-05-27 20:43] LABS: BASOPHILS % (AUTO) 0 % (0-10); EOSINOPHILS # (AUTO) 0.1 10^3/uL (0.0-0.3); EOSINOPHILS % (AUTO) 2 % (0-10); HEMATOCRIT 40 % (40-54); HEMOGLOBIN 14.9 G/DL (13.3-17.7); LYMPHOCYTES # (AUTO) 1.6 X 10^3 (1.0-4.0); LYMPHOCYTES % (AUTO) 27 % (12-44); MEAN CORPUSCULAR HEMOGLOBIN 34 PG (25-34); MEAN CORPUSCULAR HGB CONC 37 G/DL (32-36); MEAN CORPUSCULAR VOLUME 93 FL (80-99); MEAN PLATELET VOLUME 9.1 FL (7.4-10.4); MONOCYTES # (AUTO) 0.3 X 10^3 (0.0-1.0); MONOCYTES % (AUTO) 5 % (0-12); NEUTROPHILS # (AUTO) 3.9 X 10^3 (1.8-7.8); NEUTROPHILS % (AUTO) 65 % (42-75); PLATELET COUNT 153 10^3/uL (130-400); RED CELL DISTRIBUTION WIDTH 12.2 % (10.0-14.5); WHITE BLOOD COUNT 5.9 10^3/uL (4.3-11.0)
[2018-05-27] MEDS ORDERED: RT-ALBUTEROL SULF 2.5 MG/3 ML PRE-MIX VIAL INH SCH ×2 (21:00→22:00)
[2018-05-27 21:04] LABS: ALANINE AMINOTRANSFERASE 114 U/L (0-55); ALBUMIN 3.6 GM/DL (3.2-4.5); ALKALINE PHOSPHATASE 176 U/L (40-136); BILIRUBIN,TOTAL 1.5 MG/DL (0.1-1.0); BUN/CREATININE RATIO 5; CALCIUM 8.4 MG/DL (8.5-10.1); CARBON DIOXIDE 25 MMOL/L (21-32); CHLORIDE 93 MMOL/L (98-107); CREATININE SERUM 0.81 MG/DL (0.60-1.30); GFR ESTIMATED > 60; GLUCOSE 101 MG/DL (70-105); POTASSIUM 3.5 MMOL/L (3.6-5.0); SODIUM 127 MMOL/L (135-145); TOTAL PROTEIN 7.1 GM/DL (6.4-8.2)
[2018-05-27 21:25] LABS: FREE T4 (FREE THYROXINE) 0.94 NG/DL (0.70-1.48)
[2018-05-27] MEDS ORDERED: NS IV 1000 ML 1,000 ML IV SCH (21:45)
--- NOTE | 2018-05-27 21:46 | Diagnostic Imaging Report ---
INDICATION: Weakness. Comparison is made with prior examination from 01/13/15. FINDINGS: Heart size is normal. The mediastinum is unremarkable. Some minimal venous congestion. There is no pleural effusion or pneumothorax. IMPRESSION: Minimal central pulmonary venous congestion, otherwise unremarkable. Dictated by: Dictated on workstation # [id number]
[2018-05-27] MEDS ORDERED: CEFU250T80 PO (22:26)
[2018-05-27] MEDS ORDERED: ALBU2.5V4 INH (22:26)
[2018-05-27] MEDS ORDERED: PRD20T PO (22:26)
[2018-05-27] MEDS ORDERED: RX-ALBUTEROL NEB 2.5 MG/3 ML PACK #5 IH STA (22:27)
[2018-05-28 00:23] VITALS: BP 160/83
== END 2018-05-27 23:25 | disposition home or self-care (01) ==
LOC: EDUNIT# 20:12 → ER 20:14
DX: J44.1 Chronic obstructive pulmonary disease with (acute) exacerbation (principal); R07.89 Other chest pain; E78.00 Pure hypercholesterolemia, unspecified; I10 Essential (primary) hypertension; G40.909 Epilepsy, unspecified, not intractable, without status epilepticus; E03.9 Hypothyroidism, unspecified; F41.9 Anxiety disorder, unspecified; F32.9 Major depressive disorder, single episode, unspecified; F17.210 Nicotine dependence, cigarettes, uncomplicated; Z87.19 Personal history of other diseases of the digestive system; Z79.51 Long term (current) use of inhaled steroids; Z79.52 Long term (current) use of systemic steroids; Z87.01 Personal history of pneumonia (recurrent)
CPT/HCPCS: 36415; 71046; 80053; 80320; 83880; 84439; 84443; 84484; 85025; 87804; 93005; 94640

== ENCOUNTER → 2018-07-08 | Outpatient (CLI) | payer OTHER ==
[~2018-07-08] MED LIST changes: +ALBU2.5V4 INH; +CEFU250T80 PO; +PRD20T PO
[2018-07-08] MEDS: IOHEXOL 350 MG/ML 100 ML (OMNIPAQUE 350) VIAL IV ONE (10:31)
[2018-07-08] MEDS: HOLD METFORMIN - RECEIVED CONTRAST 20 ML VIAL IV SCH (10:31)
--- NOTE | 2018-07-08 12:13 | Diagnostic Imaging Report ---
PROCEDURE: CT abdomen with contrast only. TECHNIQUE: Multiple contiguous axial images were obtained through the abdomen after the administration of intravenous contrast. Auto Exposure Controls were utilized during the CT exam to meet ALARA standards for radiation dose reduction. INDICATION: Hyperammonemia, hepatitis C. I have no previous for comparison. FINDINGS: There is some nodularity of the liver capsular surface compatible with the provided history of cirrhosis. No identifiable liver mass is seen, however the intrahepatic cava was patent and the hepatic veins appear patent. The intra-and extrahepatic portal venous branches were patent, however, portal venous directional flow cannot be addressed at CT. The spleen is not pathologically enlarged and appeared nonfocal. There is no bile duct dilatation. The gallbladder had an unremarkable appearance. The pancreas is unremarkable. The adrenals are negative. The kidneys are unobstructed. There is some shotty subcentimeter periaortic retroperitoneal nodes with no dominant mass. There is no ascites. The partially visualized appendix is normal. No free air. The lung bases clear. No basilar pleural fluid. IMPRESSION: Cirrhotic appearing liver with no vascular abnormality, ascites, mass or biliary ductal dilatation. An acute appearing abnormality is not identified. Dictated by: Dictated on workstation # [id number]
== END ==
LOC: RAD 09:58
PROVIDERS: ATTEND Nurse Practitioner Community Health
DX: E72.20 Disorder of urea cycle metabolism, unspecified (principal); B18.2 Chronic viral hepatitis C
CPT/HCPCS: 74160

== ENCOUNTER 2018-07-18 12:53 | Emergency (ER) | payer SELFPAY ==
[~2018-07-18] VITALS: Ht 182.9 cm; Wt 92.2 kg
[2018-07-18] MEDS ORDERED: ESOM2.5S PO (13:17)
[2018-07-18] MEDS ORDERED: NF-RIFA200 PO (13:17)
[2018-07-18] MEDS ORDERED: fentaNYL INJECTION 100 MCG/2 ML AMP IVP STA ×2 (13:41→16:25)
[2018-07-18 13:49] LABS: BASOPHILS % (AUTO) 0 % (0-10); EOSINOPHILS # (AUTO) 0.1 10^3/uL (0.0-0.3); EOSINOPHILS % (AUTO) 1 % (0-10); HEMATOCRIT 43 % (40-54); HEMOGLOBIN 15.5 G/DL (13.3-17.7); LYMPHOCYTES # (AUTO) 1.6 X 10^3 (1.0-4.0); LYMPHOCYTES % (AUTO) 23 % (12-44); MEAN CORPUSCULAR HEMOGLOBIN 34 PG (25-34); MEAN CORPUSCULAR HGB CONC 36 G/DL (32-36); MEAN CORPUSCULAR VOLUME 93 FL (80-99); MEAN PLATELET VOLUME 10.2 FL (7.4-10.4); MONOCYTES # (AUTO) 0.6 X 10^3 (0.0-1.0); MONOCYTES % (AUTO) 9 % (0-12); NEUTROPHILS # (AUTO) 4.9 X 10^3 (1.8-7.8); NEUTROPHILS % (AUTO) 68 % (42-75); PLATELET COUNT 202 10^3/uL (130-400); RED CELL DISTRIBUTION WIDTH 13.5 % (10.0-14.5); WHITE BLOOD COUNT 7.2 10^3/uL (4.3-11.0)
--- NOTE | 2018-07-18 13:49 | ED Abdominal Pain ---
General Chief Complaint: Abdominal/GI Problems Stated Complaint: WEAKNESS/POSS LIVER FAILURE Nursing Triage Note: PATIENT HERE AFTER DIAGNOSIS OF LIVER FAILURE 2-3 WEEKS AGO. HE IS FEELING WORSE TODAY. INCREASED DIZZINESS, SHAKINESS, WEAKNESS, EDEMA TO FEET, AND SOB. Sepsis Screen: Possible Sepsis Risk Source of Information: Patient, Family Exam Limitations: No Limitations History of Present Illness Date Seen by Provider: July 18, 2018 Time Seen by Provider: 13:37 Initial Comments Here with report of upper abdominal pain and tingling on for a few days and worsening. Does have history of liver failure noted a few weeks back and found to have cirrhosis. He did have high ammonia level at that time and is currently on medicines that. That was improving and his jaundice is improving but recently the pain started getting worse. Notes 2 bowel movements today. Denies vomiting or fever. States that he is always cold. Does feel weak. Timing/Duration: 2-3 Days, Getting Worse Severity/Quality: Moderate, Cramping, Other (twisting) Location: Generalized Abdomen Radiation: Chest (tightness especially on the right side.) Activities at Onset: None Modifying Factors: Worsens With Urinating, Worsens With Vomiting Associated Symptoms: No Back Pain; Chest Pain, Fatigue; No Headache, No Nausea/ Vomiting; Swelling/Mass in Abdomen, Weakness Allergies and Home Medications Allergies Coded Allergies: No Known Drug Allergies (Unverified , 08/05/10) Home Medications Albuterol Sulfate 2.5 Mg/3 Ml Vial.neb, 2.5 MG INH Q4H PRN for WHEEZING Prescribed by: JEANNIE LATIF on 05/27/186 Carbamazepine 200 Mg Tablet, 200 MG PO BID, (Reported) [Amlodipine Besylate] 5 MG TAB, 5 MG PO DAILY Prescribed by: TAE GODOY on 01/18/14 0742 [Levothyroxine Sodium] 25 MCG TAB, 25 MCG PO DAILY@0630 Prescribed by: TAE GODOY on 01/18/14 0742 Patient Home Medication List Home Medication List Reviewed: Yes Review of Systems Review of Systems Constitutional: see HPI, chills; No fever; malaise, weakness EENTM: No Symptoms Reported Respiratory: Cough, Shortness of Air Cardiovascular: See HPI, Edema; Denies Irregular Heart Rate Gastrointestinal: Abdomen Distended, Abdominal Pain; Denies Rectal Bleeding Genitourinary: No Symptoms Reported Musculoskeletal: muscle weakness, other (right leg pain as electric shooting intermittent) Skin: change in color; No lesions Psychiatric/Neurological: See HPI All Other Systems Reviewed Negative Unless Noted: Yes Past Rgioolf-Rszxzb-Ggfvlq Hx Past Med/Social Hx: Reviewed Nursing Past Med/Soc Hx Patient Social History Alcohol Use: Denies Use Recreational Drug Use: Yes (SMOKES 1 PPD) Smoking Status: Current Everyday Smoker Type Used: Cigarettes 2nd Hand Smoke Exposure: No Recent Foreign Travel: No Contact w/Someone Who Travel: No Recent Infectious Disease Expo: No Recent Hopitalizations: Yes Physical Abuse: No Sexual Abuse: No Mistreated: No Fear: No Immunizations Up To Date Date of Pneumonia Vaccine: Nov 29, 2011 Seasonal Allergies Seasonal Allergies: No Past Medical History Surgeries: Yes (BILATERAL CARPAL TUNNEL, LIVER BIOPSY) Respiratory: Yes Pneumonia Currently Using CPAP: No Currently Using BIPAP: No Cardiac: Yes High Cholesterol, Hypertension Neurological: Yes (LAST SEIZURE WAS FALL OR WINTER OF 2013) Seizure Disorder Reproductive Disorders: No Sexually Transmitted Disease: No HIV/AIDS: No Genitourinary: No Gastrointestinal: Yes (TOOK CHEMO FOR 9 MONTHS - HEP C) Hepatitis Musculoskeletal: Yes Arthritis, Chronic Back Pain Endocrine: Yes (LOW BLOOD SUGAR) Hypothyroidsim Tinnitis Loss of Vision: Bilateral Hearing Impairment: Denies Cancer: No 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 Physical Exam Vital Signs Vital Signs - First Documented 07/18/18 13:02 Temp 98.3 Pulse 100 Resp 22 B/P (MAP) 154/99 (117) Pulse Ox 97 O2 Delivery Room Air Capillary Refill : Less Than 3 Seconds Height/Weight/BMI Height: 6'0" Weight: 203lbs. 5.0oz. 92.792537tg; 23.73 BMI Method:Actual General Appearance: WD/WN, no apparent distress HEENT: PERRL/EOMI, pharynx normal Neck: full range of motion, supple Respiratory: lungs clear, normal breath sounds Cardiovascular: no murmur, tachycardia Gastrointestinal: soft, distended, tenderness (diffuse mild) Extremities: non-tender, pedal edema (Trace bilateral lower) Back: normal inspection, no CVA tenderness, no vertebral tenderness Neurologic/Psychiatric: alert, oriented x 3 Skin: normal color, warm/dry Progress/Results/Core Measures Results/Orders Lab Results Laboratory Tests Test 07/18/18 13:36 07/18/18 13:40 Range/Units White Blood Count 7.2 4.3-11.0 10^3/uL Red Blood Count 4.63 4.35-5.85 10^6/uL Hemoglobin 15.5 13.3-17.7 G/DL Hematocrit 43 40-54 % Mean Corpuscular Volume 93 80-99 FL Mean Corpuscular Hemoglobin 34 25-34 PG Mean Corpuscular Hemoglobin Concent 36 32-36 G/DL Red Cell Distribution Width 13.5 10.0-14.5 % Platelet Count 202 130-400 10^3/uL Mean Platelet Volume 10.2 7.4-10.4 FL Neutrophils (%) (Auto) 68 42-75 % Lymphocytes (%) (Auto) 23 12-44 % Monocytes (%) (Auto) 9 0-12 % Eosinophils (%) (Auto) 1 0-10 % Basophils (%) (Auto) 0 0-10 % Neutrophils # (Auto) 4.9 1.8-7.8 X 10^3 Lymphocytes # (Auto) 1.6 1.0-4.0 X 10^3 Monocytes # (Auto) 0.6 0.0-1.0 X 10^3 Eosinophils # (Auto) 0.1 0.0-0.3 10^3/uL Basophils # (Auto) 0.0 0.0-0.1 10^3/uL Prothrombin Time 14.1 12.2-14.7 SEC INR Comment 1.1 0.8-1.4 Activated Partial Thromboplast Time 33 24-35 SEC Sodium Level 130 L 135-145 MMOL/L Potassium Level 3.6 3.6-5.0 MMOL/L Chloride Level 100 98-107 MMOL/L Carbon Dioxide Level 23 21-32 MMOL/L Anion Gap 7 5-14 MMOL/L Blood Urea Nitrogen 6 L 7-18 MG/DL Creatinine 0.77 0.60-1.30 MG/DL Estimat Glomerular Filtration Rate > 60 BUN/Creatinine Ratio 8 Glucose Level 130 H 70-105 MG/DL Calcium Level 8.8 8.5-10.1 MG/DL Corrected Calcium 9.3 8.5-10.1 MG/DL Total Bilirubin 3.8 H 0.1-1.0 MG/DL Aspartate Amino Transf (AST/SGOT) 86 H 5-34 U/L Alanine Aminotransferase (ALT/SGPT) 95 H 0-55 U/L Alkaline Phosphatase 196 H 40-136 U/L Ammonia 35 H 11-32 UMOL/L B-Type Natriuretic Peptide 18.1 <100.0 PG/ML Total Protein 7.4 6.4-8.2 GM/DL Albumin 3.4 3.2-4.5 GM/DL Thyroid Stimulating Hormone (TSH) 0.89 0.35-4.94 UIU/ML Free Thyroxine 1.02 0.70-1.48 NG/DL Magnesium Level 1.8 1.8-2.4 MG/DL Lipase 131 H 8-78 U/L My Orders Orders - IVELISSE DIAMOND MD Lipase (07/18/18 13:41) Magnesium (07/18/18 13:41) Fentanyl Injection (Sublimaze Injection (07/18/18 13:41) Us Gallbladder [id number] (07/18/18 15:05) Fentanyl Injection (Sublimaze Injection (07/18/18 16:25) Ns Iv 1000 Ml (Sodium Chloride 0.9%) (07/18/18 16:52) Ketorolac Injection (Toradol Injection) (07/18/18 16:52) Vital Signs/I&O 07/18/18 07/18/18 13:02 13:53 Temp 98.3 98.8 Pulse 100 Resp 22 B/P (MAP) 154/99 (117) Pulse Ox 97 O2 Delivery Room Air Blood Pressure Mean: 117 Progress Progress Note : Progress Note Seen and evaluated. IV, labs, chest x-ray, fentanyl 50 g IV ordered. Monitor patient. CT and previous labs reviewed. Monitor patient. Ultrasound gallbladder ordered due to elevated total bilirubin and elevated lipase. Monitor patient. 1700: Did discuss the case with the surgeon on-call. He is reviewed the previous film as well as the ultrasound today. This does not look like a gallbladder issue. I simply just be hepatitis related. Pain is improved after fentanyl but returned and repeat dosing was given. This did help. I will go ahead and give a liter of normal saline and 30 mg of Toradol IV. Monitor patient. 1745: Overall feeling better. I will send a copy of the chart to Dr. Beckford. Discharged home with return precautions. Patient verbalize understanding instructions and agreement with plan. Diagnostic Imaging Diagonstic Imaging: Xray Plain Films/CT/US/NM/MRI: chest Comments NAME: AMITA [facility] REC#: [id number] PT STATUS: REG ER : 1960 PHYSICIAN: JEANNIE LATIF APRN ADMIT DATE: 07/18/18/ER Signed Date of Exam: 07/18/18 CHEST 1 VIEW, AP/PA ONLY INDICATION: Weakness and liver failure. TIME OF EXAM: 02:39 p.m. COMPARISON: Correlation is made with prior study from 05/27/2018. FINDINGS: The heart size is normal. The pulmonary vascularity is unremarkable. The lungs are clear. No infiltrate, effusion or pneumothorax is detected. IMPRESSION: No acute cardiopulmonary process is detected. Dictated by: Dictated on workstation # [id number] Dict: 07/18/18 1450 Trans: 07/18/18 1541 Interpreted by: SHY MARQUIS MD Electronically signed by: SHY MARQUIS MD 07/18/18 1541 Diagonstic Imaging: Ultrasound Plain Films/CT/US/NM/MRI: abdomen Comments NAME: AMITA [facility] REC#: [id number] PT STATUS: REG ER : 1960 PHYSICIAN: IVELISSE DIMAOND MD ADMIT DATE: 07/18/18/ER Signed Date of Exam: 07/18/18 US GALLBLADDER [id number] PROCEDURE: US Gallbladder. TECHNIQUE: Multiple Real-time grayscale images were obtained over the right upper quadrant in various projections. INDICATION: The liver is normal in size at 14.5 cm. No discrete liver mass is seen. The portal vein is patent and shows normal direction of flow. The gallbladder wall is borderline in thickness at 3 mm. The patient does report a recent coffee and soda prior to coming to the ER. No definite stones are identified. No definite biliary ductal dilatation is seen although the common duct and pancreas are somewhat obscured by bowel gas. The right kidney is unremarkable. There is no ascites. IMPRESSION: Borderline gallbladder wall thickening which may be owing to mild contraction from the recent soda and coffee. No stones are detected. The remainder of the study is unremarkable. Dictated by: Dictated on workstation # [id number] Dict: 07/18/18 1558 Trans: 07/18/18 1611 Interpreted by: SHY MARQUIS MD Electronically signed by: SHY MARQUIS MD 07/18/18 1611 Departure Impression Primary Impression: Upper abdominal pain Disposition: HOME, SELF-CARE Condition: Improved Departure-Patient Inst. Decision time for Depature: 17:46 Referrals: [facility] [place] Primary Care Physician Patient Instructions: Acute Abdomen (Belly Pain), Adult (DC), Pancreatitis (DC) Add. Discharge Instructions: All discharge instructions reviewed with patient and/or family. Voiced understanding. Take medications as previously prescribed. You may take ibuprofen 400 or 600 mg every 8 hours as needed for pain. Clear liquid or light diet for the next one to 2 days and then advance as tolerated. Return for worse pain, fever, vomiting , weakness, breathing problems or other concerns as needed. Call Dr. Beckford's office in the morning for appointment this week and preferably within the next one to 2 days for recheck and further evaluation. Copy Copies To 1: AMBER BECKFORD MD, TIMOTHY D MD July 18, 2018 13:49
[2018-07-18 13:58] LABS: INR 1.1 (0.8-1.4); PROTHROMBIN TIME PATIENT 14.1 SEC (12.2-14.7)
[2018-07-18 14:06] LABS: ALANINE AMINOTRANSFERASE 95 U/L (0-55); ALBUMIN 3.4 GM/DL (3.2-4.5); ALKALINE PHOSPHATASE 196 U/L (40-136); AMMONIA 35 UMOL/L (11-32); BILIRUBIN,TOTAL 3.8 MG/DL (0.1-1.0); BUN/CREATININE RATIO 8; CALCIUM 8.8 MG/DL (8.5-10.1); CARBON DIOXIDE 23 MMOL/L (21-32); CHLORIDE 100 MMOL/L (98-107); CREATININE SERUM 0.77 MG/DL (0.60-1.30); GFR ESTIMATED > 60; GLUCOSE 130 MG/DL (70-105); POTASSIUM 3.6 MMOL/L (3.6-5.0); SODIUM 130 MMOL/L (135-145); TOTAL PROTEIN 7.4 GM/DL (6.4-8.2)
[2018-07-18 14:28] LABS: FREE T4 (FREE THYROXINE) 1.02 NG/DL (0.70-1.48)
[2018-07-18 14:52] LABS: MAGNESIUM 1.8 MG/DL (1.8-2.4)
--- NOTE | 2018-07-18 14:58 | Diagnostic Imaging Report ---
INDICATION: Weakness and liver failure. TIME OF EXAM: 02:39 p.m. COMPARISON: Correlation is made with prior study from 05/27/2018. FINDINGS: The heart size is normal. The pulmonary vascularity is unremarkable. The lungs are clear. No infiltrate, effusion or pneumothorax is detected. IMPRESSION: No acute cardiopulmonary process is detected. Dictated by: Dictated on workstation # [id number]
--- NOTE | 2018-07-18 16:03 | Diagnostic Imaging Report ---
PROCEDURE: US Gallbladder. TECHNIQUE: Multiple Real-time grayscale images were obtained over the right upper quadrant in various projections. INDICATION: The liver is normal in size at 14.5 cm. No discrete liver mass is seen. The portal vein is patent and shows normal direction of flow. The gallbladder wall is borderline in thickness at 3 mm. The patient does report a recent coffee and soda prior to coming to the ER. No definite stones are identified. No definite biliary ductal dilatation is seen although the common duct and pancreas are somewhat obscured by bowel gas. The right kidney is unremarkable. There is no ascites. IMPRESSION: Borderline gallbladder wall thickening which may be owing to mild contraction from the recent soda and coffee. No stones are detected. The remainder of the study is unremarkable. Dictated by: Dictated on workstation # [id number]
[2018-07-18] MEDS ORDERED: KETOROLAC 30 MG/ML VIAL IVP STA (16:52)
[2018-07-18] MEDS ORDERED: NS IV 1000 ML 1,000 ML IV STA (16:52)
[2018-07-18 17:57] VITALS: BP 159/96
== END 2018-07-18 17:57 | disposition home or self-care (01) ==
LOC: EDUNIT# 12:53 → ER 12:55
DX: R10.84 Generalized abdominal pain (principal); G56.03 Carpal tunnel syndrome, bilateral upper limbs; E78.00 Pure hypercholesterolemia, unspecified; I10 Essential (primary) hypertension; B19.20 Unspecified viral hepatitis C without hepatic coma; E03.9 Hypothyroidism, unspecified; F41.9 Anxiety disorder, unspecified; F32.9 Major depressive disorder, single episode, unspecified; G40.909 Epilepsy, unspecified, not intractable, without status epilepticus; F17.210 Nicotine dependence, cigarettes, uncomplicated; Z87.01 Personal history of pneumonia (recurrent); Z87.19 Personal history of other diseases of the digestive system
CPT/HCPCS: 36415; 71045; 76705; 80053; 82140; 83690; 83735; 83880; 84439; 84443; 85025; 85610; 85730

== ENCOUNTER 2018-10-25 17:38 | Emergency (ER) | payer SELFPAY ==
[~2018-10-25] VITALS: Ht 182.9 cm; Wt 94.9 kg
[~2018-10-25 17:38] MED LIST changes: +ESOM2.5S PO; +NF-RIFA200 PO
[2018-10-25 18:30] LABS: BASOPHILS % (AUTO) 1 % (0-10); EOSINOPHILS # (AUTO) 0.1 10^3/uL (0.0-0.3); EOSINOPHILS % (AUTO) 1 % (0-10); HEMATOCRIT 42 % (40-54); HEMOGLOBIN 15.1 G/DL (13.3-17.7); LYMPHOCYTES # (AUTO) 1.9 X 10^3 (1.0-4.0); LYMPHOCYTES % (AUTO) 29 % (12-44); MEAN CORPUSCULAR HEMOGLOBIN 34 PG (25-34); MEAN CORPUSCULAR HGB CONC 36 G/DL (32-36); MEAN CORPUSCULAR VOLUME 94 FL (80-99); MEAN PLATELET VOLUME 9.7 FL (7.4-10.4); MONOCYTES # (AUTO) 0.5 X 10^3 (0.0-1.0); MONOCYTES % (AUTO) 8 % (0-12); NEUTROPHILS # (AUTO) 3.8 X 10^3 (1.8-7.8); NEUTROPHILS % (AUTO) 61 % (42-75); PLATELET COUNT 149 10^3/uL (130-400); RED CELL DISTRIBUTION WIDTH 11.7 % (10.0-14.5); WHITE BLOOD COUNT 6.3 10^3/uL (4.3-11.0)
[2018-10-25 18:43] LABS: INR 1.1 (0.8-1.4); PROTHROMBIN TIME PATIENT 14.9 SEC (12.2-14.7)
[2018-10-25 18:45] LABS: ALANINE AMINOTRANSFERASE 29 U/L (0-55); ALBUMIN 3.3 GM/DL (3.2-4.5); ALKALINE PHOSPHATASE 164 U/L (40-136); BILIRUBIN,TOTAL 1.4 MG/DL (0.1-1.0); BUN/CREATININE RATIO 6; CALCIUM 8.6 MG/DL (8.5-10.1); CARBON DIOXIDE 22 MMOL/L (21-32); CHLORIDE 100 MMOL/L (98-107); CREATININE SERUM 0.85 MG/DL (0.60-1.30); GFR ESTIMATED > 60; GLUCOSE 119 MG/DL (70-105); MAGNESIUM 1.7 MG/DL (1.6-2.4); PHOSPHORUS 3.3 MG/DL (2.3-4.7); POTASSIUM 3.5 MMOL/L (3.6-5.0); SODIUM 132 MMOL/L (135-145); TOTAL PROTEIN 7.2 GM/DL (6.4-8.2)
--- NOTE | 2018-10-25 19:03 | ED General ---
General Chief Complaint: Abdominal/GI Problems Stated Complaint: SENT OVER FROM OFFICE FOR KIDNEY FAILURE Nursing Triage Note: PT STATES HE HAS BEEN FEELING POOR FOR THE LAST COUPLE OF DAYS, WHEN HIS PCP NURSE CALLED TO FOLLOW UP ON AN APPOINTMENT FROM LAST WEEK THE PT VOICED HIS SYMPTOMS, CAUSING THE PROVIDER TO LOOK OVER HIS LABS FROM HIS VISIT. PROVIDER ADVISED THAT THE PT GO TO THE ED BECAUSE HIS LABS WERE INDICATIVE OF RENAL FAILURE Nursing Sepsis Screen: No Definite Risk Source of Information: Patient Exam Limitations: No Limitations History of Present Illness Date Seen by Provider: Oct 25, 2018 Time Seen by Provider: 18:06 Initial Comments This 58-year-old gentleman presents to the emergency room with concerns about possible renal failure. He was reportedly sent to the emergency room by his primary care provider, Amber Beckford, because of renal failure noted on outpatient lab work. They do not know what the values are. Patient and his state they were referred to the ER for further lab evaluation. Patient's states they were told he may need dialysis. Patient does not have history of renal failure. His creatinine in July was 0.77. He does have a history of liver failure and hepatitis C. He has been experiencing upper abdominal pain for several months and mild to moderate ascites. They report his primary care team is aware of this. He also has a history of elevated ammonia levels. Allergies and Home Medications Allergies Coded Allergies: No Known Drug Allergies (Unverified , 08/05/10) Home Medications Albuterol Sulfate 2.5 Mg/3 Ml Vial.neb, 2.5 MG INH Q4H PRN for WHEEZING Prescribed by: JEANNIE LATIF on 05/27/188 Carbamazepine 200 Mg Tablet, 200 MG PO BID, (Reported) [Amlodipine Besylate] 5 MG TAB, 5 MG PO DAILY Prescribed by: TAE GODOY on 01/18/14 0742 [Levothyroxine Sodium] 25 MCG TAB, 25 MCG PO DAILY@0630 Prescribed by: TAE GODOY on 01/18/14 0742 Patient Home Medication List Home Medication List Reviewed: Yes Review of Systems Review of Systems Constitutional: no symptoms reported EENTM: no symptoms reported Respiratory: no symptoms reported Cardiovascular: no symptoms reported Gastrointestinal: see HPI Genitourinary: see HPI Musculoskeletal: no symptoms reported Skin: no symptoms reported Psychiatric/Neurological: No Symptoms Reported Hematologic/Lymphatic: No Symptoms Reported Past Rbgjdlx-Xuabht-Ndtxqb Hx Past Med/Social Hx: Reviewed Nursing Past Med/Soc Hx Patient Social History Alcohol Use: Denies Use Recreational Drug Use: No Smoking Status: Current Everyday Smoker Type Used: Cigarettes 2nd Hand Smoke Exposure: No Recent Foreign Travel: No Contact w/Someone Who Travel: No Recent Infectious Disease Expo: No Recent Hopitalizations: Yes Immunizations Up To Date Tetanus Booster (TDap): Less than 5yrs PED Vaccines UTD: Yes Date of Pneumonia Vaccine: Nov 29, 2011 Seasonal Allergies Seasonal Allergies: No Past Medical History Surgeries: Yes (BILATERAL CARPAL TUNNEL, LIVER BIOPSY) Respiratory: Yes Pneumonia Currently Using CPAP: No Currently Using BIPAP: No Cardiac: Yes High Cholesterol, Hypertension Neurological: Yes (LAST SEIZURE WAS FALL OR winter) Seizure Disorder Reproductive Disorders: No Sexually Transmitted Disease: No HIV/AIDS: No Genitourinary: No Gastrointestinal: Yes (TOOK CHEMO FOR 9 MONTHS - HEP C) Hepatitis Musculoskeletal: Yes Arthritis, Chronic Back Pain Endocrine: Yes (LOW BLOOD SUGAR) Hypothyroidsim Tinnitis Loss of Vision: Bilateral Hearing Impairment: Denies Cancer: No 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 Physical Exam Vital Signs Vital Signs - First Documented 10/25/18 17:48 Temp 97.9 Pulse 77 Resp 20 B/P (MAP) 154/94 (114) Pulse Ox 97 O2 Delivery Room Air Capillary Refill : Less Than 3 Seconds Height, Weight, BMI Height: 6'0" Weight: 209lbs. 5.0oz. 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 Norm as Tested Skin: Normal Color, Warm/Dry Progress/Results/Core Measures Suspected Sepsis Recent Fever Within 48 Hours: No Infection Criteria Present: None New/Unexplained Altered Menta: No Sepsis Screen: No Definite Risk SIRS Temperature:97.9 Pulse: 77 Respiratory Rate: 20 Laboratory Tests 10/25/18 17:55: White Blood Count 6.3 Blood Pressure 154 /94 Mean: 114 Laboratory Tests 10/25/18 17:55: Creatinine 0.85, INR Comment 1.1, Platelet Count 149, Total Bilirubin 1.4H Results/Orders Lab Results Laboratory Tests Test 10/25/18 17:55 10/25/18 18:25 Range/Units White Blood Count 6.3 4.3-11.0 10^3/uL Red Blood Count 4.43 4.35-5.85 10^6/uL Hemoglobin 15.1 13.3-17.7 G/DL Hematocrit 42 40-54 % Mean Corpuscular Volume 94 80-99 FL Mean Corpuscular Hemoglobin 34 25-34 PG Mean Corpuscular Hemoglobin Concent 36 32-36 G/DL Red Cell Distribution Width 11.7 10.0-14.5 % Platelet Count 149 130-400 10^3/uL Mean Platelet Volume 9.7 7.4-10.4 FL Neutrophils (%) (Auto) 61 42-75 % Lymphocytes (%) (Auto) 29 12-44 % Monocytes (%) (Auto) 8 0-12 % Eosinophils (%) (Auto) 1 0-10 % Basophils (%) (Auto) 1 0-10 % Neutrophils # (Auto) 3.8 1.8-7.8 X 10^3 Lymphocytes # (Auto) 1.9 1.0-4.0 X 10^3 Monocytes # (Auto) 0.5 0.0-1.0 X 10^3 Eosinophils # (Auto) 0.1 0.0-0.3 10^3/uL Basophils # (Auto) 0.0 0.0-0.1 10^3/uL Prothrombin Time 14.9 H 12.2-14.7 SEC INR Comment 1.1 0.8-1.4 Sodium Level 132 L 135-145 MMOL/L Potassium Level 3.5 L 3.6-5.0 MMOL/L Chloride Level 100 98-107 MMOL/L Carbon Dioxide Level 22 21-32 MMOL/L Anion Gap 10 5-14 MMOL/L Blood Urea Nitrogen 5 L 7-18 MG/DL Creatinine 0.85 0.60-1.30 MG/DL Estimat Glomerular Filtration Rate > 60 BUN/Creatinine Ratio 6 Glucose Level 119 H 70-105 MG/DL Calcium Level 8.6 8.5-10.1 MG/DL Corrected Calcium 9.2 8.5-10.1 MG/DL Phosphorus Level 3.3 2.3-4.7 MG/DL Magnesium Level 1.7 1.6-2.4 MG/DL Total Bilirubin 1.4 H 0.1-1.0 MG/DL Aspartate Amino Transf (AST/SGOT) 37 H 5-34 U/L Alanine Aminotransferase (ALT/SGPT) 29 0-55 U/L Alkaline Phosphatase 164 H 40-136 U/L Total Protein 7.2 6.4-8.2 GM/DL Albumin 3.3 3.2-4.5 GM/DL Thyroid Stimulating Hormone (TSH) 1.41 0.35-4.94 UIU/ML Free Thyroxine 0.76 0.70-1.48 NG/DL Ammonia 43 H 11-32 UMOL/L My Orders Orders - TAMIKO ANDERSON MD Cbc With Automated Diff (10/25/18 18:14) Comprehensive Metabolic Panel (10/25/18 18:14) Magnesium (10/25/18 18:14) Protime With Inr (10/25/18 18:14) Thyroid Stimulating Hormone (10/25/18 18:14) Phosphorus (10/25/18 18:14) Ed Iv/Invasive Line Start (10/25/18 18:14) Free T4 (Free Thyroxine) (10/25/18 18:14) Ammonia (10/25/18 18:29) Vital Signs/I&O 10/25/18 19:31 Temp 97.1 Pulse 64 Resp 20 B/P (MAP) 152/85 (107) Pulse Ox 97 Capillary Refill : Less Than 3 Seconds Blood Pressure Mean: 114 Progress Note : Progress Note Patient's renal function was normal. Labs were otherwise consistent with findings of chronic liver failure. Patient was dismissed for outpatient follow- up. Departure Impression Primary Impression: Abnormal laboratory test Additional Impression: Liver failure Qualified Codes: K72.00 - Acute and subacute hepatic failure without coma Disposition: HOME, SELF-CARE Condition: Stable/Unchanged Departure-Patient Inst. Decision time for Depature: 19:04 Referrals: AMBER BECKFORD MD (PCP/Family) Primary Care Physician Patient Instructions: No Instuctions Given Add. Discharge Instructions: Your lab evaluation today demonstrated mild abnormalities consistent with your history of liver failure. Your kidney function was normal based on your labs in the emergency room. Please follow-up with your primary care provider for management of your chronic conditions. All discharge instructions reviewed with patient and/or family. Voiced understanding. Copy Copies To 1: AMBER BECKFORD MD, JOSHUA T MD Oct 25, 2018 19:03
[2018-10-25 19:07] LABS: FREE T4 (FREE THYROXINE) 0.76 NG/DL (0.70-1.48)
[2018-10-25 19:31] VITALS: BP 152/85
== END 2018-10-25 19:32 | disposition home or self-care (01) ==
LOC: EDUNIT# 17:38 → ER 17:39
DX: K72.90 Hepatic failure, unspecified without coma (principal); R79.9 Abnormal finding of blood chemistry, unspecified; B19.20 Unspecified viral hepatitis C without hepatic coma; I10 Essential (primary) hypertension; E78.00 Pure hypercholesterolemia, unspecified; G40.909 Epilepsy, unspecified, not intractable, without status epilepticus; E03.9 Hypothyroidism, unspecified; F41.9 Anxiety disorder, unspecified; F32.9 Major depressive disorder, single episode, unspecified; F17.210 Nicotine dependence, cigarettes, uncomplicated; Z87.01 Personal history of pneumonia (recurrent)
CPT/HCPCS: 36415; 80053; 82140; 83735; 84100; 84439; 84443; 85025; 85610

== ENCOUNTER → 2019-03-27 | Outpatient (CLI) | payer MEDICARE, OTHER ==
--- NOTE | 2019-03-27 09:18 | Diagnostic Imaging Report ---
PROCEDURE: US Abdomen, limited. TECHNIQUE: Multiple Real-time grayscale images were obtained over the abdomen in various projections. INDICATION: Liver failure. This study is performed to evaluate for ascites. FINDINGS: Evaluation of all four quadrants of the abdomen was performed. No ascites is seen. IMPRESSION: No ascites. Dictated by: Dictated on workstation # [id number]
== END ==
LOC: RAD 08:35
PROVIDERS: ATTEND Pediatrics
DX: K72.10 Chronic hepatic failure without coma (principal)
CPT/HCPCS: 76705

== ENCOUNTER → 2019-05-22 | Outpatient (CLI) | payer MEDICARE, OTHER ==
--- NOTE | 2019-05-22 09:04 | Diagnostic Imaging Report ---
INDICATION: Cirrhosis. PROCEDURE: Ultrasound abdomen complete. TECHNIQUE: Multiple real-time grayscale images were obtained of the abdomen in various projections. Liver is normal in size at 15.1 cm. Liver demonstrates nodular contour consistent with cirrhosis. Liver parenchyma is heterogeneous. No discrete liver mass is detected. Portal vein is patent and shows normal directional flow. Gallbladder is without stones or sludge. No wall thickening or biliary duct dilatation is seen. Pancreas was obscured by bowel gas. Spleen is upper limits of normal in size at 13.6 cm. Aorta and IVC were obscured. The kidneys demonstrate normal cortical thickness and echogenicity. No calculi are seen. There is no hydronephrosis. There is no ascites. IMPRESSION: Findings consistent with cirrhosis. No discrete liver mass is identified. No other significant abnormality is seen. Dictated by: Dictated on workstation # [id number]
== END ==
LOC: RAD 07:54
PROVIDERS: ATTEND Internal Medicine
DX: K74.69 Other cirrhosis of liver (principal)
CPT/HCPCS: 76700

== ENCOUNTER → 2019-10-16 | Outpatient (CLI) | payer OTHER ==
--- NOTE | 2019-10-16 10:57 | Diagnostic Imaging Report ---
INDICATION: Cirrhosis. PROCEDURE: Ultrasound abdomen complete. TECHNIQUE: Multiple real-time grayscale images were obtained of the abdomen in various projections. FINDINGS: The liver is normal in size at 16 cm. There is somewhat nodular contour to the liver as well as liver parenchymal heterogeneity, consistent with cirrhosis. No discrete liver mass is identified. Portal vein is patent and shows normal direction of flow. Gallbladder is without stones or sludge. No wall thickening or biliary ductal dilatation is seen. Pancreas was obscured by bowel gas. Spleen is upper limits normal in size at 13.5 cm. Aorta is largely obscured by bowel gas. IVC is patent. Kidneys are without calculi or hydronephrosis. There is no ascites. IMPRESSION: Findings suggestive of cirrhosis. No discrete liver mass is detected. The portal vein is patent and shows normal direction of flow. Dictated by: Dictated on workstation # [id number]
== END ==
LOC: RAD 09:00
PROVIDERS: ATTEND Internal Medicine
DX: K74.69 Other cirrhosis of liver (principal)
CPT/HCPCS: 76700

== ENCOUNTER → 2020-03-29 | Outpatient (CLI) | payer OTHER ==
--- NOTE | 2020-03-29 08:59 | Diagnostic Imaging Report ---
INDICATION: Cirrhosis of the liver PROCEDURE: Ultrasound abdomen complete. TECHNIQUE: Multiple real-time grayscale images were obtained of the abdomen in various projections. The previous abdominal ultrasound exam of 10/16/2019 noted the liver had somewhat of a nodular contour as well as parenchymal heterogeneity. This appearance did suggest cirrhosis. On this exam the liver is again identified and does not appear to have changed significantly. The liver is not enlarged and there is no focal mass involving the liver. Spectral and color-flow imaging of the portal vein shows the vein is patent. The spleen is prominent but not definitely enlarged. The spleen measures 11.3 x 5.2 x 4.6 cm There is no evidence for cholelithiasis or acute cholecystitis and the common bile duct is not dilated. The kidneys, the aorta and inferior vena cava are unremarkable for an acute abnormality. The pancreas was not well-visualized. There is no mass or free fluid collection evident. IMPRESSION: 1. The appearance of the liver is stable when compared to the prior exam. The nodular contour and heterogeneity of the liver does suggest cirrhosis. There still no sign of an hepatic mass. 2. There is no acute abnormality of the abdomen. Dictated by: Dictated on workstation # [id number]
== END ==
LOC: RAD 08:00
PROVIDERS: ATTEND Nurse Practitioner Adult Health
DX: K74.69 Other cirrhosis of liver (principal)
CPT/HCPCS: 76700

== ENCOUNTER 2020-04-12 05:38 | Outpatient (RCR) | payer OTHER ==
[~2020-04-12] VITALS: Ht 182.9 cm; Wt 93.0 kg
[~2020-04-12 05:38] MED LIST changes: +AMLO-250 PO; +CARB200T6 PO; +ERGO50006 PO; +FURO80TA3 PO; +LEVO25CA4 PO; +RIFA500P3 MC; +SPIR50TA4 PO
== END 2020-04-15 12:26 | disposition home or self-care (01) ==
LOC: PREOP 05:38
PROVIDERS: ATTEND Surgery
DX: Z01.812 Encounter for preprocedural laboratory examination (principal); Z12.11 Encounter for screening for malignant neoplasm of colon; Z20.822 Contact with and (suspected) exposure to COVID-19
CPT/HCPCS: 87635

== ENCOUNTER 2020-04-16 10:16 | Day surgery (SDC) | payer OTHER ==
[~2020-04-16] VITALS: Ht 182.9 cm; Wt 93.0 kg
[2020-04-16] MEDS ORDERED: LACTATED RINGERS 1,000 ML IV STA (10:18)
[2020-04-16] MEDS ORDERED: LACTATED RINGERS 1,000 ML IV ONE (10:23)
[2020-04-16] MEDS ORDERED: PROPOFOL INJECTION 50 ML IV ONE (10:36)
[2020-04-16] MEDS ORDERED: MIDAZOLAM 2 MG/2 ML (VERSED) VIAL ONE (10:36)
[2020-04-16 10:52] VITALS: BP 135/85
--- NOTE | 2020-04-16 11:30 | Progress Note-Pre Operative ---
Pre-Operative Progress Note H&P Reviewed The H&P was reviewed, patient examined and no changes noted. Date Seen by Provider: Apr 16, 2020 Time Seen by Provider: 11:30 Date H&P Reviewed: Apr 16, 2020 Time H&P Reviewed: 11:30 Pre-Operative Diagnosis: screening colonoscopy TANVI BEACH DO Apr 16, 2020 11:30
[2020-04-16] MEDS ORDERED: proPOfol 200 MG/20 ML (DIPRIVAN) VIAL IV ONE (11:40)
[2020-04-16 11:50] VITALS: BP 131/78
--- NOTE | 2020-04-16 11:51 | Progress Note-Post Operative ---
Post-Operative Progess Note Surgeon (s)/Hip Hop Performers (s) Surgeon TANVI BEACH DO Hip Hop Performers: NA Pre-Operative Diagnosis screening colonoscopy Post-Operative Diagnosis COLON POLYP X 2 Procedure & Operative Findings Date of Procedure 04/16/20 Procedure Performed/Findings COLONOSCOPY C HOT BX POLYPECTOMY X 2 Anesthesia Type PER SAFETY ASSOCIATE Estimated Blood Loss Estimated blood loss (mL): NONE Specimens/Packing Specimens Removed ASCENDING COLON POLYP, SIGMOID POLYP ATNVI BEACH DO Apr 16, 2020 11:51
--- NOTE | 2020-04-16 11:52 | Discharge Inst-Simple/Standard ---
Discharge Inst-Standard Patient Instructions/Follow Up Plan of Care/Instructions/FU: 2 WEEKS YONG Activity as Tolerated: Yes Discharge Diet: Regular Diet TANVI BEACH DO Apr 16, 2020 11:52
[2020-04-16 11:55] VITALS: BP 126/75
[2020-04-16 12:00] VITALS: BP 151/72
[2020-04-16 12:25] VITALS: BP 116/75
--- NOTE | 2020-04-16 12:27 | Anesthesia-General Post-Op ---
MAC Patient Condition Mental Status/LOC: Same as Preop Cardiovascular: Satisfactory Nausea/Vomiting: Absent Respiratory: Satisfactory Pain: Controlled Complications: Absent Post Op Complications Complications None Follow Up Care/Instructions Patient Instructions None needed. Anesthesiology Discharge Order Discharge Order Patient is doing well, no complaints, stable vital signs, no apparent adverse anesthesia problems. No complications reported per nursing. BERNABE MILLS CRNA Apr 16, 2020 12:27
[2020-04-16 12:40] VITALS: BP 116/75
--- NOTE | 2020-04-16 14:18 | OPERATIVE REPORT ---
DATE OF SERVICE: 04/16/2020 PREOPERATIVE DIAGNOSIS: Screening colonoscopy. POSTOPERATIVE DIAGNOSIS: Colon polyps. PROCEDURE: Colonoscopy with hot biopsy polypectomy x2. SURGEON: Tanvi Encarnacion DO ANESTHESIA: Per ENGINEER AND GEOLOGIST. ESTIMATED BLOOD LOSS: None. COMPLICATIONS: None. INDICATIONS: The patient is a 59-year-old male needing screening colonoscopy. He understands risks and benefits of procedure and wished to proceed with procedure. Consent was signed in the chart. DESCRIPTION OF PROCEDURE: The patient was taken to the endoscopy suite, placed in left lateral recumbent position. Timeout was performed. A digital rectal exam was performed. There were no palpable polyps, masses or ulcerations. Scope was inserted in the rectum, advanced all the way to cecum with minimal difficulty. Prep was adequate. The terminal ileum was intubated, had normal appearance. Scope was retracted back into the colon. Cecum had no polyps, masses or ulcerations. In the ascending colon, a polyp was present, which hot biopsy polypectomy was performed. Scope was then continued to be slowly retracted back. No polyps, masses or ulcerations within the remainder of the ascending, transverse and descending colon and sigmoid colon, small polyp was present, which hot biopsy polypectomy was performed. Scope was then continuously slowly retracted back in the rectum. It was also retroflexed noting some internal hemorrhoids. No other pathology. Scope was returned to its normal position, slowly withdrawn until completely removed. The patient tolerated procedure well without any complications, taken to recovery room in stable condition. RECOMMENDATIONS: The patient will need repeat colonoscopy in 3 to 5 years. Any issues before that be seen at that time. The patient will follow up in the office to discuss pathology results. Job ID: [id number] DocumentID: [id number] Dictated Date: 04/16/2020 11:54:55 Nursery Technician Date: 04/16/2020 14:17:27 Dictated By: TANVI ENCARNACION DO
== END 2020-04-16 12:40 | disposition home or self-care (01) ==
LOC: ENDO 10:16
PROVIDERS: ATTEND Surgery
DX: Z12.11 Encounter for screening for malignant neoplasm of colon (principal); D12.2 Benign neoplasm of ascending colon; I10 Essential (primary) hypertension; F41.9 Anxiety disorder, unspecified; F32.9 Major depressive disorder, single episode, unspecified; F17.210 Nicotine dependence, cigarettes, uncomplicated; Z79.899 Other long term (current) drug therapy; Z83.3 Family history of diabetes mellitus

== ENCOUNTER 2020-05-14 05:30 | Outpatient (RCR) | payer OTHER ==
[~2020-05-14] VITALS: Ht 182.9 cm; Wt 87.7 kg
[~2020-05-14 05:30] MED LIST changes: +OMEP40CA27 PO
== END 2020-05-14 10:58 | disposition home or self-care (01) ==
LOC: PREOP 05:30
PROVIDERS: ATTEND Surgery
DX: Z01.812 Encounter for preprocedural laboratory examination (principal); R22.1 Localized swelling, mass and lump, neck; Z20.822 Contact with and (suspected) exposure to COVID-19
CPT/HCPCS: 87635

== ENCOUNTER 2020-05-16 08:55 | Day surgery (SDC) | payer OTHER ==
[~2020-05-16] VITALS: Ht 182 cm; Wt 87.7 kg
[2020-05-16] VITALS (9 sets, daily range): BP systolic 128–155; BP diastolic 74–93
[2020-05-16] MEDS ORDERED: ceFAZolin INJECTION 1,000 MG ONE (09:20)
[2020-05-16] MEDS ORDERED: WATER (STERILE) FOR INJECTION 10 ML ONE (09:20)
[2020-05-16] MEDS ORDERED: ceFAZolin INJECTION 0 MG ONE (09:20)
[2020-05-16] MEDS ORDERED: LIDOCAINE/EPI 1%-1:100,000 (XYLOCAINE) 50 ML ONE (09:28)
[2020-05-16] MEDS ORDERED: ceFAZolin INJECTION 1,000 MG in WATER (STERILE) FOR INJECTION 10 ML IV ONE (09:30)
[2020-05-16] MEDS ORDERED: LACTATED RINGERS 1,000 ML IV PRN (09:30)
--- NOTE | 2020-05-16 09:51 | Progress Note-Pre Operative ---
Pre-Operative Progress Note H&P Reviewed The H&P was reviewed, patient examined and no changes noted. Date Seen by Provider: May 16, 2020 Time Seen by Provider: 09:50 Date H&P Reviewed: May 16, 2020 Time H&P Reviewed: 09:50 Pre-Operative Diagnosis: right cheek mass, right neck cyst TANVI BEACH DO May 16, 2020 09:51
[2020-05-16] MEDS ORDERED: MIDAZOLAM 2 MG/2 ML (VERSED) VIAL ONE (10:00)
[2020-05-16] MEDS ORDERED: fentaNYL INJECTION 100 MCG/2 ML AMP ONE (10:01)
[2020-05-16] MEDS ORDERED: LIDOCAINE PF 2% 5 ML (XYLOCAINE) VIAL ONE (10:08)
[2020-05-16] MEDS ORDERED: ONDANSETRON 4 MG/2 ML (SDV) Z0FRAN ONE (10:08)
[2020-05-16] MEDS ORDERED: SEVOFLURANE (ULTANE) 15 ML INHAL SOLN ONE (10:08)
[2020-05-16] MEDS ORDERED: proPOfol 200 MG/20 ML (DIPRIVAN) VIAL IV ONE ×2 (10:08→11:18)
[2020-05-16] MEDS ORDERED: SUCCINYLCHOLINE INJ 100 MG/5 ML SYR/VIAL ONE (10:54)
[2020-05-16] MEDS ORDERED: ROCURONIUM 10 MG/ML 5 ML SYRINGE IV ONE (10:54)
[2020-05-16] MEDS ORDERED: MUPIROCIN 2% OINT 22 GM (BACTROBAN) TUBE ONE (11:05)
[2020-05-16] MEDS ORDERED: BSS 15 ML ONE (11:16)
[2020-05-16] MEDS ORDERED: HYDROmorphone 2 MG/ML VIAL (DILAUDID) IV ONE (11:30)
[2020-05-16] MEDS ORDERED: ONDANSETRON 4 MG/2 ML (SDV) Z0FRAN IVP PRN (11:30)
--- NOTE | 2020-05-16 11:57 | Discharge Inst-Simple/Standard ---
Discharge Inst-Standard Patient Instructions/Follow Up Plan of Care/Instructions/FU: 1 week Shashank Activity as Tolerated: Yes Discharge Diet: Regular Diet Other Inst to Patient Follow up Appt: Make appointment for1 week. Instructions: No lifting greater than 10 pounds. No strenuous activity. May shower in 24 hours, no tub bath or soaking. Use incentive spirometer at home as directed. No Smoking Skin/Wound Care: Keep incisions clean and dry. Symptoms to Report: Appetite Changes, Extremity Discoloration, Numbness/Tingling, Swelling Increased, Bleeding Excessive, Eyesight Changes, Pain Increased, Urine Color Change, Constipation(Persistent), Fever over 101 degree F, Pain/Pressure in chest, Urinating Difficulty, Cough Up/Vomit Blood, Heart Beat Irreg/Pounding, Pain/Pressure in jaw, Vaginal Bleeding Increase, Cramps in feet or legs, Lightheadedness, Pain/Pressure in shoulder, Diarrhea(Persistent), Memory Changes Suddenly, Questions/Concerns, Weight gain consecutive days, Dizziness/Fainting, Nausea/Vomiting, Shortness of Breath, Weight gain over 2 pounds If questions or concerns contact your physician Or seek help at emergency department. TANVI BEACH DO May 16, 2020 11:57
--- NOTE | 2020-05-16 11:58 | Progress Note-Post Operative ---
Post-Operative Progess Note Surgeon (s)/Entertainment Agent (s) Surgeon TANVI BEACH DO Entertainment Agent: na Pre-Operative Diagnosis right cheek mass, right neck cyst Post-Operative Diagnosis same Procedure & Operative Findings Date of Procedure 05/16/20 Procedure Performed/Findings excision right neck mass and right neck cyst Anesthesia Type general Estimated Blood Loss Estimated blood loss (mL): minimal Specimens/Packing Specimens Removed right neck mass, right neck cyst TANVI BEACH DO May 16, 2020 11:58
--- NOTE | 2020-05-16 21:56 | OPERATIVE REPORT ---
DATE OF SERVICE: 05/16/2020 PREOPERATIVE DIAGNOSIS: Right face mass and right neck cyst. POSTOPERATIVE DIAGNOSIS: Right face mass and right neck cyst. PROCEDURE: Excision of skin and subcutaneous tissue of right face mass and right neck cyst. Right face mass was 2.5 x 1 cm and right neck cyst was 3 x 1.4 cm. SURGEON: Tanvi Encarnacion DO ANESTHESIA: General. ESTIMATED BLOOD LOSS: Minimal. COMPLICATIONS: None. INDICATIONS: The patient is a 59-year-old male with a mass on his right face, which he wishes to have it removed. He also has a cyst on the right neck, which he wishes to have it removed as well. The patient understands all risks and benefits and wishes to proceed. Consent was signed in the chart. DESCRIPTION OF PROCEDURE: The patient was taken to the operating suite, was prepped and draped in sterile fashion. Timeout was performed. The patient in the left lateral recumbent position, the 15 blade scalpel was used to make an elliptical incision around the right neck mass measuring 3 x 1.4 cm. Cautery was used to dissect down to the skin and subcutaneous tissues until the entire cyst was removed. Hemostasis was achieved. Local anesthetic was infiltrated in the area and the wound was irrigated. The skin was then closed using 2-0 nylon in a simple running fashion. The right face mass on the right cheek then had a 15 blade scalpel to make an elliptical incision around it, dissected down through the skin and subcutaneous tissues. Cautery was also used to dissect down through the subcutaneous tissues and achieve hemostasis. Once removed, local anesthetic was infiltrated, and the wound was irrigated. Hemostasis was achieved. The skin was then closed using 5-0 Prolene in simple interrupted fashion. The areas were then washed, and dried and sterile bandage were applied. The patient tolerated procedure well without complications and taken to recovery room in stable condition. Job ID: [id number] DocumentID: [id number] Dictated Date: 05/16/2020 16:31:27 Director Of Finance Date: 05/16/2020 21:55:19 Dictated By: TANVI ENCARNACION DO
--- NOTE | 2020-05-20 10:00 | Anesthesia-General Post-Op ---
General Significant Intra-Op Events Notes post op completed 05/16 1230 Patient Condition Mental Status/LOC: Same as Preop Cardiovascular: Satisfactory Nausea/Vomiting: Absent Respiratory: Satisfactory Pain: Controlled Complications: Absent Post Op Complications Complications None Follow Up Care/Instructions Patient Instructions None needed. Anesthesia/Patient Condition Patient Condition Patient is doing well, no complaints, stable vital signs, no apparent adverse anesthesia problems. No complications reported per nursing. D/C home per [facility] Criteria: Yes YOBANY MONTIEL CRNA May 20, 2020 10:00
== END 2020-05-16 13:15 ==
LOC: SDC 08:55
PROVIDERS: ATTEND Surgery
DX: L72.0 Epidermal cyst (principal); I10 Essential (primary) hypertension; F41.9 Anxiety disorder, unspecified; F32.9 Major depressive disorder, single episode, unspecified; M19.90 Unspecified osteoarthritis, unspecified site; D12.2 Benign neoplasm of ascending colon; F17.210 Nicotine dependence, cigarettes, uncomplicated; Z79.899 Other long term (current) drug therapy; Z83.3 Family history of diabetes mellitus
CPT/HCPCS: 87081; 88304

== ENCOUNTER → 2020-09-27 | Outpatient (CLI) | payer OTHER ==
[~2020-09-27] MED LIST changes: +ERGO1250 PO; -ERGO50006 PO; -OMEP40CA27 PO; +OMEP40CA6 PO
--- NOTE | 2020-09-27 08:47 | Diagnostic Imaging Report ---
PROCEDURE: US Abdomen, limited. TECHNIQUE: Multiple realtime grayscale images were obtained over the abdomen in various projections. INDICATION: Cirrhosis. FINDINGS: The liver capsular surface has a somewhat nodular morphology and the liver parenchymal echotexture somewhat coarsened and heterogeneous. No discrete mass can be found, however the appearance of the liver at ultrasound is in keeping with the provided history of cirrhosis. There is no bile duct dilatation. The gallbladder appeared unremarkable. Pancreas, aorta and much of the IVC were obscured from visualization by shadowing gas. No intra- or extrahepatic bile duct dilatation. The unobstructed right kidney normal in size, cortical thickness and echotexture. There is no ascites or fluid collection. IMPRESSION: Appearance of liver is consistent with cirrhosis. No detectable mass or ascites. No biliary abnormality. Dictated by: Dictated on workstation # [id number]
[2020-09-27 13:14] LABS: BASOPHILS # (AUTO) 0.1 10^3/uL (0.0-0.1); BASOPHILS % (AUTO) 1 % (0-10); EOSINOPHILS # (AUTO) 0.1 10^3/uL (0.0-0.3); EOSINOPHILS % (AUTO) 3 % (0-10); HEMATOCRIT 45 % (40-54); HEMOGLOBIN 15.6 g/dL (13.3-17.7); LYMPHOCYTES # (AUTO) 1.7 10^3/uL (1.0-4.0); LYMPHOCYTES % (AUTO) 32 % (12-44); MEAN CORPUSCULAR HEMOGLOBIN 34 pg (25-34); MEAN CORPUSCULAR HGB CONC 35 g/dL (32-36); MEAN CORPUSCULAR VOLUME 96 fL (80-99); MEAN PLATELET VOLUME 10.3 fL (9.0-12.2); MONOCYTES # (AUTO) 0.4 10^3/uL (0.0-1.0); MONOCYTES % (AUTO) 8 % (0-12); NEUTROPHILS % (AUTO) 57 % (42-75); PLATELET COUNT 148 10^3/uL (130-400); WHITE BLOOD COUNT 5.3 10^3/uL (4.3-11.0)
[2020-09-27 13:20] LABS: PROTHROMBIN TIME PATIENT 13.6 SEC (12.2-14.7)
[2020-09-27 13:28] LABS: ALANINE AMINOTRANSFERASE 24 U/L (0-55); ALBUMIN 3.9 GM/DL (3.2-4.5); ALKALINE PHOSPHATASE 149 U/L (40-136); BILIRUBIN,TOTAL 0.7 MG/DL (0.1-1.0); BUN/CREATININE RATIO 10; CALCIUM 8.9 MG/DL (8.5-10.1); CARBON DIOXIDE 26 MMOL/L (21-32); CHLORIDE 102 MMOL/L (98-107); CREATININE SERUM 0.77 MG/DL (0.60-1.30); GFR ESTIMATED > 60; GLUCOSE 99 MG/DL (70-105); POTASSIUM 3.9 MMOL/L (3.6-5.0); SODIUM 137 MMOL/L (135-145); TOTAL PROTEIN 7.2 GM/DL (6.4-8.2)
[2020-09-30 22:14] LABS: VITAMIN A INTERPRETATION Normal
== END ==
LOC: RAD 07:00
PROVIDERS: ATTEND Internal Medicine
DX: K74.69 Other cirrhosis of liver (principal)
CPT/HCPCS: 36415; 76705; 80053; 82105; 82306; 84590; 85025; 85610

== ENCOUNTER → 2021-03-17 | Outpatient (CLI) | payer OTHER ==
[~2021-03-17] MED LIST changes: -RIFA500P3 MC; +RIFA500P4 MC
--- NOTE | 2021-03-17 09:36 | Diagnostic Imaging Report ---
PROCEDURE: US Abdomen, limited. TECHNIQUE: Multiple realtime grayscale images were obtained over the abdomen in various projections. INDICATION: Hepatic cirrhosis Liver parenchyma is homogeneous. The liver surface appears slightly nodular. Portal vein is patent with hepatopetal flow. Gallbladder is clear with no stones or wall thickening. The common duct is not dilated. Pancreas is obscured by bowel gas. Aorta and IVC appear normal. Right kidney measures 10.3 cm length and appears normal. There is no ascites. IMPRESSION: Nodularity of the surface of the liver consistent with cirrhosis. Dictated by: Dictated on workstation # [id number]
== END ==
LOC: RAD 08:00
PROVIDERS: ATTEND Internal Medicine
DX: K74.69 Other cirrhosis of liver (principal)
CPT/HCPCS: 76705